=== PATIENT | male | born 1965 | race African-American/Black ===

== ENCOUNTER → 2023-01-04 | Outpatient (CLI) | payer OTHER ==
--- NOTE | 2023-01-04 14:27 | MR ---
EXAMINATION TYPE: MR cervical spine wo con DATE OF EXAM: 01/04/2023 12:58 PM COMPARISON: NONE HISTORY: Headaches, pain and weakness into rt arm Multiplanar MultiSpin echo imaging of the cervical spine was performed. Comparison: none C2-C3: No evidence for degenerative disc disease. No disc bulge/herniation or protrusion. No Canal stenosis. Foramina are patent bilaterally. C3-C4: Mild Disc desiccation. Mild posterior disc bulge with mild effacement ventral thecal sac. AP s maryjo canal diameter appears to be a diminutive on a congenital basis. No central stenosis seen. Mild left foraminal encroachment. C4-C5: Moderate disc desiccation left paracentral disc herniation and partial encapsulating spur. The re is mass effect upon the cervical spinal cord on the left and moderate central stenosis. There is l eft greater than right neural foraminal encroachment. Ventral spondylosis seen. C5-C6: Moderate disc desiccation with broad-based posterior disc bulge and effacement of the ventral thecal sac. Partially encapsulating spur noted. Mild central stenosis seen. Moderate bilateral forami nal encroachment. C6-C7: Moderate disc desiccation with broad-based posterior disc bulge and effacement of the ventral thecal sac. Partially encapsulating spur noted. Borderline to Mild central stenosis seen. Mild bilate ral foraminal encroachment. C7-T1: No evidence for degenerative disc disease. No disc bulge/herniation or protrusion. No Canal stenosis. Foramina are patent bilaterally. Cervical segments are intact. There is normal alignment. Cervical spinal cord is of normal signal. Craniovertebral junction relationships are within normal limits. Scattered ventral spondylosis. IMPRESSION: 1. Multilevel degenerative disc disease. 2. Multilevel central stenosis and foraminal encroachment as outlined above.
== END | disposition home or self-care (01) ==
LOC: RADMRIMAIN 11:20
PROVIDERS: ATTEND Family Medicine
DX: M99.71 Connective tissue and disc stenosis of intervertebral foramina of cervical region (principal); M48.02 Spinal stenosis, cervical region; M50.320 Other cervical disc degeneration, mid-cervical region, unspecified level; R51.9 Headache, unspecified
CPT/HCPCS: 72141

== ENCOUNTER → 2023-02-14 | Outpatient (CLI) | payer OTHER ==
[2023-02-14 11:05] VITALS: BP 136/93; PULSE 110; RESP 15; TEMP 98.4
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
== END ==
LOC: PNWHC3 09:49
PROVIDERS: ATTEND Specialist
DX: M47.812 Spondylosis without myelopathy or radiculopathy, cervical region (principal); E11.9 Type 2 diabetes mellitus without complications; M50.322 Other cervical disc degeneration at C5-C6 level; M19.90 Unspecified osteoarthritis, unspecified site; I10 Essential (primary) hypertension; E78.5 Hyperlipidemia, unspecified; F17.200 Nicotine dependence, unspecified, uncomplicated; J45.909 Unspecified asthma, uncomplicated; Z79.01 Long term (current) use of anticoagulants; Z79.84 Long term (current) use of oral hypoglycemic drugs
CPT/HCPCS: 99211

== ENCOUNTER → 2023-04-24 | Outpatient (CLI) | payer OTHER ==
[2023-04-24 13:02] VITALS: BP 156/92; PULSE 76; RESP 15; TEMP 98.7
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
== END ==
LOC: PNWHC3 11:52
PROVIDERS: ATTEND Specialist
DX: M51.36 Other intervertebral disc degeneration, lumbar region (principal)
CPT/HCPCS: 99211

== ENCOUNTER 2023-05-09 08:55 | Day surgery (SDC) | payer OTHER ==
[2023-05-02 11:50] VITALS: BMI 44.6
[2023-05-09] MEDS ORDERED: LACTATED RINGERS 1,000 ML IV SCH (09:13)
[2023-05-09 09:20] LABS: Glucose,Whole Blood 171 mg/dL (70-110)
[2023-05-09 09:37] VITALS: TEMP 98.6
[2023-05-09] MEDS ORDERED: IOPAMIDOL M200 10 ML VIAL ONE (09:51)
[2023-05-09] MEDS ORDERED: DEXAMETHASONE SOD PHOSPHATE 10 MG/ML 1 ML VIAL ONE (09:51)
--- NOTE | 2023-05-09 09:58 | P.PCN ---
Date of Procedure: 05/09/23 Procedure(s) Performed: PROCEDURE 1. Cervical epidural steroid injection under fluoroscopic guidance, C6-7 (fluoroscopy images available in the radiology department ) 2. Cervical epidurogram. PREOPERATIVE DIAGNOSIS: 1- Cervical Degenerative Disc Diseases 2- Cervical radiculopathy. POSTOPERATIVE DIAGNOSIS: : 1- Cervical Degenerative Disc Diseases , 2- Cervical radiculopathy. ANESTHESIA: Local anesthesia with lidocaine 1% 3 ml only EBL 0 PROCEDURE INDICATION: The patient with neck pain and radiculitis unresponsive to conservative treatment consents for procedure. PROCEDURE DESCRIPTION / TECHNIQUE: The patient was seen and identified in the preoperative area. Risks, benefits, complications, including but not limited to infections ,bleeding , allergic reactions to the medications ,and not complete pain releife, and alternatives were discussed with the patient, the patient agreed to proceed with the procedure and signed the consent. Patient was taken to the OR and time out was completed. The patient was placed in the prone position on the procedure table. A pillow was placed under the patients chest to increase the cervical interlaminar space. The cervical area was prepped and draped in the usual sterile fashion. Vital signs were closely monitored during the procedure. Using anterior-posterior fluoroscopy, the C6-7 interlaminar space was identified and the skin over this site was marked and then infiltrated with 1% lidocaine subcutaneously. Subsequently, a 20-gauge 3-1/2-inch Tuohy epidural needle was inserted and advanced toward the epidural space by means of the ``hanging-drop technique and guided by AP and lateral fluoroscopy. The correct needle position in the epidural space was verified with the injection of 2 mL of the water soluble contrast dye Isovue-200 and observing an excellent epidurogram with the epidural spread of the dye, after negative aspiration for blood and CSF and in the absence of paresthesias. then, mixture containing 20 mg Dexamethasone and 2 ml of preservative-free normal saline injected and a washout of epidurogram was seen. Needle was withdrawn intact, skin was cleansed, and bandages were applied. Complications= none. Disposition= patient was placed in supine position and transferred to the recovery room area in stable condition and there was no evidence of upper or lower extremity motor or sensory deficit after the procedure patient was discharged from recovery room after discharge criteria met and home discharge instructions was given by the staff and patient will follow with the pain clinic in 2-4 weeks
[2023-05-09 10:09] LABS: Glucose,Whole Blood 161 mg/dL (70-110)
[2023-05-09 10:28] VITALS: RESP 20
[2023-05-09 10:53] VITALS: BP 144/85
[2023-05-09 10:54] VITALS: PULSE 91
--- NOTE | 2023-05-09 11:39 | FL ---
EXAMINATION TYPE: FL guided pain mgmt statistic Intraoperative/procedural fluoroscopic services were provided. Total fluoroscopy time is 3. seconds with a total of 1 submitted images to PACS. Please see the operative/procedural note for further details. DAP: [id number] mGym2
== END 2023-05-09 11:00 | disposition home or self-care (01) ==
LOC: ORPAIN 08:55
PROVIDERS: ATTEND Specialist
DX: M50.123 Cervical disc disorder at C6-C7 level with radiculopathy (principal); E11.9 Type 2 diabetes mellitus without complications; Z88.6 Allergy status to analgesic agent
CPT/HCPCS: 62321; J1100; Q9966

== ENCOUNTER → 2023-05-27 | Outpatient (CLI) | payer OTHER ==
[2023-05-27 13:34] VITALS: BP 134/84; PULSE 96; RESP 15; TEMP 98.4
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
== END ==
LOC: PNWHC3 12:30
PROVIDERS: ATTEND Specialist
DX: M50.322 Other cervical disc degeneration at C5-C6 level (principal); F12.90 Cannabis use, unspecified, uncomplicated
CPT/HCPCS: 99211

== ENCOUNTER → 2023-10-25 | Outpatient (CLI) | payer OTHER ==
[~2023-10-25] MED LIST: REGADENOSON 0.4 MG/5 ML SYRINGE IV ONE
--- NOTE | 2023-10-25 13:34 | NM ---
EXAMINATION TYPE: NM stress lexiscan cardiolite DATE OF EXAM: 10/25/2023 COMPARISON: NONE CLINICAL INDICATION: Male, 58 years old with history of I10 HTN; TECHNIQUE: After the intravenous administration of 10.02 mCi Tc 99m Sestamibi - Cardiolite resting S PECT images acquired 70 minutes post injection. The patient received 0.4mg Lexiscan, 25.8 mCi Tc 99m Sestamibi - Stress images obtained [address] injection FINDINGS: Review of stress and rest SPECT images demonstrates no distinct perfusion abnormality. Gated analysi s shows normal wall motion with an estimated left ventricular ejection fraction of 60 %. TID is calc ulated at 0.75, within normal limits. IMPRESSION: No scintigraphic evidence for reversible ischemia.
--- NOTE | 2023-10-25 15:25 | CA ---
Lexiscan Nuclear Stress Test Report Name: Eleuterio Koch Exam Date: 10/25/2023 09:20 Exam Location: [facility] Ht (in): 67 Wt (lb): 274 BSA: 2.31 Ordering Phys: Rosario Barrera MD Referring Phys: Patric Andino DO Technologist: RICHARD Age: 58 Gender: M : 1965 Procedure CPT: Indications: I10 HTN ICD-10 Codes: Patient History: Hypertension, hyperlipidemia, chest pain and shortness of breath Medications: Meds past 24 hrs: Pretest Chest Pain: STRESS TEST Lexiscan Protocol Exercise Duration (min:sec): 01:[address] Depressions (mm): Angina Score: Cummins Score: Resting HR (bpm): 86 Peak HR (bpm): 126 Resting BP (mmHg): 147 / 86 Peak BP (mmHg): 204 / 113 MPHR: 161 Target HR: 137 % MPHR: 78 METS: 1.0 Total Dose: Peak Dose: Atropine: Double Product: 32611 BP Response: Stress Termination: INFUSION COMPLETE Stress Symptoms: DIFFICULTY IN BREATHING Stress Summary: ECG ANALYSIS Resting ECG: Stress ECG: CONCLUSIONS At baseline EKG showed sinus rhythm, normal axis, T-wave flattening in the inferior and lateral leads. Patient recieved IV infusion of Lexiscan 0.4mg and at peak infusion EKG showed no significant change from baseline. Conclusions: 1. Nonspecific stress EKG portion secondary baseline EKG abnormalities. 2. Nuclear imaging to be reported separately. Dr. Jamie Nails DO (Electronically Signed) Final Date: 25 October 2023 15:25
== END | disposition home or self-care (01) ==
LOC: RADNMMAIN 07:37
PROVIDERS: ATTEND Nuclear Medicine Nuclear Cardiology
DX: Z01.810 Encounter for preprocedural cardiovascular examination (principal); E78.2 Mixed hyperlipidemia; I10 Essential (primary) hypertension; R94.31 Abnormal electrocardiogram [ECG] [EKG]
CPT/HCPCS: 93017; 78452; A9500; J2785

== ENCOUNTER → 2024-02-25 | Outpatient (CLI) | payer OTHER ==
[2024-02-25 18:44] LABS: Basophils # (A) 0.09 X 10*3/uL (0.00-0.10); Basophils % (A) 0.9 %; Eosinophils # (A) 0.14 X 10*3/uL (0.04-0.35); Eosinophils % (A) 1.4 %; HCT 44.2 % (39.6-50.0); HGB 14.3 g/dL (13.0-17.0); Lymphocytes # (A) 3.31 X 10*3/uL (0.90-5.00); Lymphocytes % (A) 32.3 %; MCH 26.6 pg (27.0-32.0); MCHC 32.4 g/dL (32.0-37.0); MCV 82.3 FL (80.0-97.0); Mean Platelet Volume 11.7 FL (9.5-12.2); Monocytes % (A) 10.7 %; NRBC Per 100 WBC 0 X 10*3/uL (0.00-0.01); Neutrophils # (A) 5.57 X 10*3/uL (1.80-7.70); Neutrophils % (A) 54.4 %; Platelet Count 229 X 10*3/uL (140-440); RBC 5.37 X 10*6/uL (4.40-5.60); RDW 14.5 % (11.5-14.5); WBC 10.24 X 10*3/uL (4.50-10.00)
[2024-02-25 19:06] LABS: Immunoglobulin E 48.2 IU/mL (0.00-114.00)
[2024-02-26 13:25] LABS: Alt. alternata IgE Class CLASS 0; Alternaria alternata IgE <0.10 kU/L (<0.10); Asperg. fumagatus IgE <0.10 kU/L (<0.10); Asperg. fumagatus IgE Class CLASS 0; Bermuda Grass IgE <0.10 kU/L (<0.10); Birch(Com.Silvr) IgE <0.10 kU/L (<0.10); Birch(Com.Silvr) IgE Class CLASS 0; Cat Epith & Dander IgE <0.10 kU/L (<0.10); Cat Epith & Dander IgE Class CLASS 0; Clad herbarum IgE <0.10 kU/L (<0.10); Clad herbarum IgE Class CLASS 0; Cockroach IgE <0.10 kU/L (<0.10); Cottonwood IgE <0.10 kU/L (<0.10); Dermato. Pteronyssinus Class CLASS 0; Dermato. Pteronyssinus IgE <0.10 kU/L (<0.10); Dermato. farinae IgE <0.10 kU/L (<0.10); Dermato. farinae IgE Class CLASS 0; Dog Dander IgE <0.10 kU/L (<0.10); Elm IgE <0.10 kU/L (<0.10); IgE (Allergen) 40.8 IU/mL (<114.0); Maple (Box Elder) IgE <0.10 kU/L (<0.10); Maple (Box Elder) IgE Class CLASS 0; Mountain Cedar IgE <0.10 kU/L (<0.10); Mountain Cedar IgE Class CLASS 0; Mouse Urine IgE Class CLASS 0; Mouse Urine Proteins,IgE <0.10 kU/L (0.10); Nettle IgE <0.10 kU/L (<0.10); Nettle IgE Class CLASS 0; Oak IgE <0.10 kU/L (<0.10); Penicillium chrysogenum IgE <0.10 kU/L (<0.10); Penicillium chrysogenum IgE Cl CLASS 0; Rough Marshelder IgE <0.10 kU/L (<0.10); Rough Marshelder IgE Class CLASS 0; Timothy Grass IgE <0.10 kU/L (<0.10); Timothy Grass IgE Class CLASS 0; White Ash IgE Class CLASS 0
[2024-02-27 12:05] LABS: Alpha 1 Anti-Trypsin 136 mg/dL (90 - 200)
== END | disposition home or self-care (01) ==
LOC: LABWHC1 13:19
PROVIDERS: ATTEND Internal Medicine Pulmonary Disease
DX: R06.02 Shortness of breath (principal); R53.83 Other fatigue; J45.50 Severe persistent asthma, uncomplicated; R05.9 Cough, unspecified
CPT/HCPCS: 36415; 82103; 82104; 82785; 85025; 86001; 86003; 86606; 86609

== ENCOUNTER 2024-06-19 12:23 | Inpatient (IN) | payer OTHER ==
[2024-06-19 13:09] LABS: Glucose,Whole Blood 219 mg/dL (70-110)
[2024-06-19] MEDS: IV FLUID CONTINUATION 800 ML IV ONE (13:40)
[2024-06-19] MEDS: MIDAZOLAM 2 MG/2 ML VIAL IVP ONE (13:45)
[2024-06-19] MEDS: fentaNYL (PF) 50 MCG/ML 2 ML AMP IVP ONE (13:46)
[2024-06-19] MEDS: HEPARIN SODIUM 1,000 UN/ML (10ML VL) IVP ONE (13:51)
[2024-06-19] MEDS: PRASUGREL 10 MG TAB PO ONE (14:00)
[2024-06-19] MEDS: HEPARIN SODIUM,PORCINE 10,000 UNIT in SODIUM CHLORIDE 0.9% 1,000 ML IRRIGATION ONE (14:08)
[2024-06-19] MEDS: HEPARIN SODIUM,PORCINE (1 ML) 2,500 UNIT in SODIUM CHLORIDE 0.9% 250 ML IRRIGATION ONE (14:08)
[2024-06-19] MEDS: IOPAMIDOL-370 100ML BTL INJ ONE (14:18)
[2024-06-19] MEDS ORDERED: ATROPINE SULFATE 0.1 MG/ML 10ML SYRINGE IV PRN (14:22)
[2024-06-19] MEDS ORDERED: RX INFO: IV CONTRAST WAS GIVEN 1 EACH MISC MISCELLANE PRN (14:22)
[2024-06-19] MEDS ORDERED: MAG HYDROX/AL HYDROX/SIMETH 30 ML CUP PO PRN (14:22)
--- NOTE | 2024-06-19 14:33 | P.PCN ---
Date of Procedure: 06/19/24 Operative Findings: PERCUTANEOUS CORONARY INTERVENTION Performing physician Rishi Reaves M.D. Procedure Performed: 1. Successful stenting of the mid LAD using 4.0 x 33 Xience drug-eluting stent with an excellent angiographic results. 2. Adjunctive use of IVUS and IFR Indication: This is a 59-year-old -[place] gentleman who was admitted to the hospital with chest discomfort and underwent myocardial perfusion imaging stress that showed an anterior ischemia with he underwent a heart catheterization and that revealed intermediate to severe disease involving the first OM as well as LAD. He was brought today to undergo an IFR of the OM and LAD Approach: Right common femoral artery Complications: None Level of Sedation: Moderate with a sedation length of 35 minutes Procedure Discussion: After obtaining informed consent the patient was brought to the cardiac Supervisor [employer]. The right common femoral sheath was exchanged over a 035 wire into a new 6 Prydeinig 11 cm sheath. After that I did 0 the Dobler wire and equalized between the Dobler wire and guiding catheter which was JL 4 guiding catheter. Anticoagulation was initiated using heparin. Subsequently the left main was engaged and the Dobler wire was advanced initially to the first obtuse marginal branch of the left circumflex with IFR was performed came in to be normal at 0.91. Subsequently the wire was directed toward the LAD was IFR was performed and came to be abnormal at 0.87. Subsequently I decided to intervene on the LAD. I did IVUS which showed a diameter between 3.5 to 4 mm. Predilatation was performed using 3 mm balloon before I deployed 4.0 x 33 mm stent which was positioned under fluoroscopy guidance and deployed under fluoroscopy guidance and postdilated using 4 mm noncompliant balloon was final angiogram and IVUS showed good angiographic results and the procedure was completed with no complication Postprocedure Management: 1. Dual antiplatelet therapy using aspirin and Effient for at least 6-month 2. Aggressive cholesterol control 3. Risk factors modification
[2024-06-19 14:41] LABS: Glucose,Whole Blood 196 mg/dL (70-110)
[2024-06-19] MEDS: NITROGLYCERIN SL TABS 0.4 MG TAB SUBLINGUAL PRN (15:16)
[2024-06-19] MEDS: SODIUM CHLORIDE 0.9% 1,000 ML in EMPTY BAG 1 BAG IV SCH (15:17)
[2024-06-19] MEDS: ACETAMINOPHEN TAB 500 MG TAB PO PRN (15:26)
[2024-06-19] MEDS ORDERED: hydrALAZINE HCL 20 MG/ML 1 ML VIAL IVP PRN (15:48)
[2024-06-19 17:03] LABS: Glucose,Whole Blood 278 mg/dL (70-110)
[2024-06-19] MEDS ORDERED: DEXTROSE 50% SYRINGE 50 ML IVP PRN ×2 (17:03)
[2024-06-19] MEDS: IPRATROPIUM-ALBUTEROL 3 ML NEB INHALATION PRN (17:11)
[2024-06-19] MEDS: INSULIN LISPRO (HumaLOG) 100 UNIT/ML 10 mL VL SQ SCH (17:14)
[2024-06-19 20:09] LABS: Glucose,Whole Blood 195 mg/dL (70-110)
[2024-06-19] MEDS: FLUTICASONE 110 MCG INHALER INHALATION SCH (20:28)
[2024-06-19] MEDS: INSULIN GLARGINE (LANTUS) 100 UNIT/ML SYR SQ SCH (21:18)
[2024-06-20 06:24] LABS: Glucose,Whole Blood 219 mg/dL (70-110)
[2024-06-20 07:40] LABS: African American GFR (CKD) >90 (>60 ml/min/1.73 sqM); Non-African American GFR(CKD) >90 (>60 ml/min/1.73 sqM)
[2024-06-20] MEDS: ASPIRIN 81 MG PO SCH (09:05)
[2024-06-20] MEDS: MONTELUKAST 10 MG TAB PO SCH (09:05)
[2024-06-20] MEDS: CHOLECALCIFEROL 25 MCG (1000 IU) TABLET PO SCH (09:05)
[2024-06-20] MEDS: PRASUGREL 10 MG TAB PO SCH (09:05)
[2024-06-20 11:27] LABS: Glucose,Whole Blood 338 mg/dL (70-110)
[2024-06-20] MEDS: METOPROLOL SUCCINATE (ER) 25 MG TAB.ER.24H PO SCH (12:09)
[2024-06-20] MEDS: DAPAGLIFLOZIN PROPANEDIOL 10 MG TABLET PO SCH (12:09)
[2024-06-20] MEDS: amLODIPine 2.5 MG TAB PO SCH (12:09)
[2024-06-20 12:54] LABS: NT-Pro-B-Type Natriuretic Pept <20 pg/mL
[2024-06-20] MEDS ORDERED: NON FORMULARY DRUG (Albuterol Inhaler 90 MCG Puff) INHALATION PRN (14:37)
[2024-06-20 14:51] VITALS: BMI 40.4
[2024-06-20] MEDS: INSULIN GLARGINE (LANTUS) 100 UNIT/ML SYR SQ SCH (15:43)
[2024-06-20 16:54] LABS: Glucose,Whole Blood 129 mg/dL (70-110)
[2024-06-20] MEDS: glipiZIDE 5 MG TAB PO SCH (17:03)
[2024-06-20] MEDS: ATORVASTATIN 40 MG TAB PO SCH (20:35)
[2024-06-20 20:53] LABS: Glucose,Whole Blood 155 mg/dL (70-110)
[2024-06-20] MEDS: ZOLPIDEM 5 MG TAB PO PRN (21:12)
--- NOTE | 2024-06-21 01:53 | HP ---
HISTORY AND PHYSICAL CHIEF COMPLAINT: Chest pain. HISTORY OF PRESENT ILLNESS: This 59-year-old gentleman with past medical history of multiple medical problems, admitted with chest pain. The patient had abnormal stress test. Anterior wall ischemia is suspected. Dr. eRaves performed cardiac catheterization and successful stenting of the mid LAD with drug-eluting stent. There is no history of fever, rigors, or chills at this time. Blood sugars are elevated. PAST MEDICAL HISTORY: Reviewed include COPD, diabetes, hypertension, hyperlipidemia. Rest of the chart is also reviewed. HOME MEDICATIONS: Reviewed include Zestril. ALLERGIES: None. FAMILY HISTORY: History of cancer in the family. SOCIAL HISTORY: THC smoking. REVIEW OF SYSTEMS: Fourteen-point review is negative except as mentioned earlier. PHYSICAL EXAMINATION: VITAL SIGNS: Pulse 84, blood pressure 131/69, respirations 20. HEENT: Conjunctivae normal. NECK: No JVD. CARDIOVASCULAR: S1, S2. RESPIRATIONS: Breath sounds diminished at the bases. Scattered rhonchi. ABDOMEN: Soft. NERVOUS SYSTEM: Nonfocal. LABORATORY DATA: Reviewed. Glucose 338. ASSESSMENT: 1. Coronary artery disease, status post cardiac catheterization and stenting of the mid LAD. 2. Diabetes mellitus, type 2. 3. Chronic obstructive pulmonary disease. 4. Hypertension. 5. Hyperlipidemia. RECOMMENDATIONS AND DISCUSSION: I recommend to continue current management and treatment. Recommend resume the home medications. Monitor blood sugars closely. Closely follow with Cardiology. Dual antiplatelet treatment. Bronchodilators. Guarded prognosis. Further recommendations to follow. See orders for details. MMODL / IJN: [id number] /
[2024-06-21 05:51] LABS: Glucose,Whole Blood 148 mg/dL (70-110)
[2024-06-21 08:25] LABS: Basophils # (A) 0.1 k/uL (0-0.2); Basophils % (A) 1 %; Eosinophils # (A) 0.2 k/uL (0-0.7); Eosinophils % (A) 2 %; HCT 48.2 % (39.0-53.0); HGB 15.1 gm/dL (13.0-17.5); Lymphocytes # (A) 2.5 k/uL (1.0-4.8); Lymphocytes % (A) 25 %; MCH 26.8 pg (25.0-35.0); MCHC 31.2 g/dL (31.0-37.0); MCV 85.9 fL (80.0-100.0); Monocytes # (A) 0.8 k/uL (0-1.0); Monocytes % (A) 8 %; Neutrophils # (A) 6.3 k/uL (1.3-7.7); Neutrophils % (A) 62 %; Platelet Count 210 k/uL (150-450); RBC 5.61 m/uL (4.30-5.90); RDW 13.2 % (11.5-15.5); WBC 10.1 k/uL (3.8-10.6)
[2024-06-21 08:56] LABS: ALT 41 U/L (4-49); AST 40 U/L (17-59); African American GFR (CKD) >90 (>60 ml/min/1.73 sqM); Albumin 4.3 g/dL (3.5-5.0); Alkaline Phosphatase 76 U/L (38-126); Anion Gap 11 mmol/L; Blood Urea Nitrogen 11 mg/dL (9-20); Calcium 9.2 mg/dL (8.4-10.2); Carbon Dioxide 27 mmol/L (22-30); Chloride 100 mmol/L (98-107); Glucose 163 mg/dL (74-99); Non-African American GFR(CKD) >90 (>60 ml/min/1.73 sqM); Potassium 4.2 mmol/L (3.5-5.1); Sodium 138 mmol/L (137-145); Total Bilirubin 0.9 mg/dL (0.2-1.3); Total Protein 7.8 g/dL (6.3-8.2)
[2024-06-21 11:35] LABS: Chol/HDL Ratio 5.56 Ratio
[2024-06-21 11:39] LABS: Glucose,Whole Blood 147 mg/dL (70-110)
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
[2024-06-21] MEDS: BUDESONIDE 1 MG/2 ML NEBU INHALATION SCH (15:20)
[2024-06-21] MEDS: IPRATROPIUM-ALBUTEROL 3 ML NEB INHALATION SCH (15:22)
[2024-06-21 16:36] LABS: Influenza A Not Detected (Not Detectd); Influenza B Not Detected (Not Detectd); RSV Not Detected (Not Detectd)
[2024-06-21 16:40] LABS: Glucose,Whole Blood 236 mg/dL (70-110)
[2024-06-21 20:07] LABS: Glucose,Whole Blood 242 mg/dL (70-110)
--- NOTE | 2024-06-21 20:26 | P.CRDCN ---
History of Present Illness Consult date: 06/20/24 History of present illness: HISTORY OF PRESENTING ILLNESS: Patient is a 59-year-old -[place] male who was transferred from [facility] because of a abnormal myocardial perfusion imaging stress test showing anterior wall ischemia. He had a heart catheterization which showed severe disease involving first OM and LAD. For this he was transferred to [facility]. He underwent PCI to mid LAD because of abnormal IFR. OM assessment of IFR was negative therefore was no intervention was done in OM. Postoperatively he has been doing well. He denies any shortness of breath palpitation lightheadedness or dizziness. This morning he was complaining of some nonspecific chest pressure-like symptoms for this I started him on amlodipine for antianginal control. REVIEW OF SYSTEMS: 14 point review of system is negative except what is mentioned above in HPI. PHYSICAL EXAMINATION: Neck: Brisk carotid upstroke, no jugular venous distention. Lungs: Clear to auscultation. Heart: Regular rate and rhythm, S1-S2, , no murmur or rub. Abdomen: Soft nontender, positive bowel sounds. Extremities: No edema, intact distal pulses. Neuro: Alert, oritented, no focal deficits. Detailed neuro exam was not performed. ASSESSMENT: # CAD status post PCI to LAD # Moderate nonobstructive disease in OM # Type 2 diabetes # Dyslipidemia PLAN: Continue aspirin, prasugrel 10 mg daily, Lipitor 40 mg daily, amlodipine 2.5 mg daily, lisinopril 2.5 mg daily Monitor blood pressure and heart rate. If patient does not have any chest pain symptoms, consider discharging patient. Darrius Delgado MD, FACC, RPVI Thank you for allowing [facility] to participate in this patient's care. Feel free to reach out in case of any followup questions. Past Medical History Past Medical History: COPD, Diabetes Mellitus, Hyperlipidemia, Hypertension Additional Past Medical History / Comment(s): gout History of Any Multi-Drug Resistant Organisms: None Reported Past Surgical History: Orthopedic Surgery Additional Past Surgical History / Comment(s): ORIF LT ANKLE. KNEE CAP REPLACED BILAT. BILAT EYES COSMETIC SX Past Anesthesia/Blood Transfusion Reactions: No Reported Reaction Past Psychological History: No Psychological Hx Reported Smoking Status: Current every day smoker Past Alcohol Use History: Occasional Additional Past Alcohol Use History / Comment(s): SMOKING 1/2 PPD SINCE AGE 9 Past Drug Use History: Marijuana Additional Drug Use History / Comment(s): USES MARIJUANA DAILY - Past Family History Mother Family Medical History: Cancer Medications and Allergies Home Medications Medication Instructions Recorded Confirmed Type Albuterol Inhaler [Ventolin Hfa 2 puff INHALATION RT-Q6H PRN 05/02/23 06/19/24 History Inhaler] Atorvastatin [Lipitor] 20 mg PO DAILY 05/02/23 06/19/24 History Cholecalciferol (Vitamin D3) 50 mcg PO DAILY 06/19/24 06/19/24 History [Vitamin D3 (50 Mcg = 2000 Iu)] Dulaglutide [Trulicity] 1.5 mg SQ FR 06/19/24 06/19/24 History Fluticasone Propionate 110 Mcg 2 puff INHALATION RT-BID 06/19/24 06/19/24 History [Flovent 110 Mcg Inhaler] Insulin Glargine,Hum.rec.anlog 20 units SQ HS 06/19/24 06/19/24 History [Lantus Solostar Pen] Montelukast [Singulair] 10 mg PO DAILY 06/19/24 06/19/24 History glipiZIDE [Glucotrol] 10 mg PO AC-BRKFST 06/19/24 06/19/24 History lisinopriL [Zestril] 10 mg PO DAILY 06/19/24 06/19/24 History metFORMIN HCL ER [Glucophage XR] 1,000 mg PO BID-W/MEALS 06/19/24 06/19/24 History Allergies Allergy/AdvReac Type Severity Reaction Status Date / Time No Known Allergies Allergy Verified 06/19/24 16:18 Physical Exam Vitals: Vital Signs Temp Pulse Pulse Resp BP BP Pulse Ox 06/21/24 16:13 98.7 F 82 20 105/69 99 06/21/24 16:03 85 06/21/24 15:54 88 06/21/24 12:16 91 20 106/73 06/21/24 11:32 95 87/51 76/49 06/21/24 11:26 130/81 06/21/24 11:20 98.2 F 82 20 106/73 99 06/21/24 09:04 72 06/21/24 08:53 68 98 06/21/24 08:00 98.3 F 76 20 116/70 99 06/21/24 04:21 98.1 F 83 20 150/77 99 06/20/24 23:24 98.8 F 90 20 140/88 98 06/20/24 20:25 99.2 F 84 20 116/68 95 Intake and Output 06/21/24 06/21/24 06/21/24 06:59 14:59 22:59 Intake Total 960 480 Balance 960 480 Intake: Oral 960 480 Other: Voiding Method # Voids 3 Weight Results 06/21/24 07:30 06/21/24 07:30 Cardiac Enzymes 06/21/24 Range/Units 07:30 AST 40 (17-59) U/L Lipids 06/20/24 Range/Units 06:39 Triglycerides 234.00 H (0.00-149.00) mg/dL Cholesterol 168.00 (0.00-200.00) mg/dL HDL Cholesterol 30.20 L (40.00-60.00) mg/dL Cholesterol/HDL Ratio 5.56 Ratio CBC 06/21/24 Range/Units 07:30 WBC 10.1 (3.8-10.6) k/uL RBC 5.61 (4.30-5.90) m/uL Hgb 15.1 (13.0-17.5) gm/dL Hct 48.2 (39.0-53.0) % Plt Count 210 (150-450) k/uL Comprehensive Metabolic Panel 06/21/24 Range/Units 07:30 Sodium 138 (137-145) mmol/L Potassium 4.2 (3.5-5.1) mmol/L Chloride 100 (98-107) mmol/L Carbon Dioxide 27 (22-30) mmol/L BUN 11 (9-20) mg/dL Creatinine 0.73 (0.66-1.25) mg/dL Glucose 163 H (74-99) mg/dL Calcium 9.2 (8.4-10.2) mg/dL AST 40 (17-59) U/L ALT 41 (4-49) U/L Alkaline Phosphatase 76 (38-126) U/L Total Protein 7.8 (6.3-8.2) g/dL Albumin 4.3 (3.5-5.0) g/dL Current Medications Generic Name Dose Route Start Last Admin Trade Name Freq PRN Reason Stop Dose Admin Acetaminophen 1,000 mg 06/19/24 15:26 06/19/24 15:26 Acetaminophen Tab 500 Mg Tab PO 1,000 mg ONCE PRN Administration Fever and/ or Pain Al Hydroxide/Mg Hydroxide 30 ml 06/19/24 14:22 Mag Hydrox/Al Hydrox/Simeth 30 Ml Cup PO Q4HR PRN Heartburn Albuterol/Ipratropium 3 ml 06/19/24 16:47 06/21/24 15:54 Ipratropium-Albuterol 3 Ml Neb INHALATION 3 ml RT-Q4H PRN Administration Shortness Of Breath Albuterol/Ipratropium 3 ml 06/21/24 14:49 06/21/24 15:22 Ipratropium-Albuterol 3 Ml Neb INHALATION Not Given RT-TID MARTA Amlodipine Besylate 2.5 mg 06/20/24 11:45 06/21/24 08:15 Amlodipine 2.5 Mg Tab PO 2.5 mg DAILY MARTA Administration Aspirin 81 mg 06/20/24 09:00 06/21/24 08:15 Aspirin 81 Mg PO 81 mg DAILY MARTA Administration Atorvastatin Calcium 40 mg 06/20/24 21:00 06/20/24 20:35 Atorvastatin 40 Mg Tab PO 40 mg HS MARTA Administration Atropine Sulfate 0.5 mg 06/19/24 14:22 Atropine Sulfate 0.1 Mg/Ml 10ml Syringe IV ONCE PRN Symptomatic Bradycardia Budesonide 1 mg 06/21/24 14:55 06/21/24 15:20 Budesonide 1 Mg/2 Ml Nebu INHALATION Not Given RT-BID MARTA Cholecalciferol 50 mcg 06/20/24 09:00 06/21/24 08:15 Cholecalciferol 25 Mcg (1000 Iu) Tablet PO 50 mcg DAILY MARTA Administration Dapagliflozin 10 mg 06/20/24 11:45 06/21/24 08:15 Dapagliflozin Propanediol 10 Mg Tablet PO 10 mg DAILY MARTA Administration Dextrose/Water 25 ml 06/19/24 17:03 Dextrose 50% Syringe 50 Ml IVP PER PROTOCOL PRN Hypoglycemia Protocol Dextrose/Water 50 ml 06/19/24 17:03 Dextrose 50% Syringe 50 Ml IVP PER PROTOCOL PRN Hypoglycemia Protocol Glipizide 10 mg 06/20/24 14:45 06/21/24 07:03 Glipizide 5 Mg Tab PO 10 mg AC-BRKFST MARTA Administration Insulin Glargine 20 unit 06/20/24 15:00 06/21/24 07:03 Insulin Glargine (Lantus) 100 Unit/Ml Syr SQ 20 unit BID@0700,2100 MARTA Administration Insulin Human Lispro 0 unit 06/19/24 17:30 06/21/24 17:16 Insulin Lispro (Humalog) 100 Unit/Ml 10 Ml Vl SQ 4 unit ACHS MARTA Administration Protocol Lisinopril 2.5 mg 06/20/24 09:00 06/21/24 08:15 Lisinopril 2.5 Mg Tab PO 2.5 mg DAILY MARTA Administration Metoprolol Succinate 25 mg 06/20/24 11:45 06/21/24 08:15 Metoprolol Succinate (Er) 25 Mg Tab.Er.24h PO 25 mg DAILY MARTA Administration Montelukast Sodium 10 mg 06/20/24 09:00 06/21/24 08:15 Montelukast 10 Mg Tab PO 10 mg DAILY MARTA Administration Nitroglycerin 0.4 mg 06/19/24 14:22 06/21/24 11:27 Nitroglycerin Sl Tabs 0.4 Mg Tab SUBLINGUAL 0.4 mg Q5M PRN Administration Chest Pain Non-Formulary Medication 1.5 mg 06/26/24 09:00 Dulaglutide [Trulicity] SQ FR MARTA Prasugrel 10 mg 06/20/24 09:00 06/21/24 08:15 Prasugrel 10 Mg Tab PO 10 mg DAILY MARTA Administration Protocol Zolpidem Tartrate 5 mg 06/19/24 14:22 06/20/24 21:12 Zolpidem 5 Mg Tab PO 5 mg HS PRN Administration Insomnia Intake and Output 06/21/24 06/21/24 06/21/24 06:59 14:59 22:59 Intake Total 960 480 Balance 960 480 Intake: Oral 960 480 Other: Voiding Method # Voids 3 Weight 06/21/24 07:30 06/21/24 07:30
--- NOTE | 2024-06-21 20:28 | P.PN ---
Subjective Progress Note Date: 06/21/24 HISTORY OF PRESENTING ILLNESS: Patient is a 59-year-old -Cyp[place] male who was transferred from [facility] because of a abnormal myocardial perfusion imaging stress test showing anterior wall ischemia. He had a heart catheterization which showed severe disease involving first OM and LAD. For this he was transferred to [facility]. He underwent PCI to mid LAD because of abnormal IFR. OM assessment of IFR was negative therefore was no intervention was done in OM. Postoperatively he has been doing well. He denies any shortness of breath palpitation lightheadedness or dizziness. This morning he was complaining of some nonspecific chest pressure-like symptoms for this I started him on amlodipine for antianginal control. Progress note 06/21/2024 Patient is still complaining of substernal chest pressure-like symptoms however his symptom description is very atypical. I will monitoring for next 24 hours and if patient is hemodynamically stable and does not have any chest pain, consider discharging him tomorrow. PHYSICAL EXAMINATION: Neck: Brisk carotid upstroke, no jugular venous distention. Lungs: Clear to auscultation. Heart: Regular rate and rhythm, S1-S2, , no murmur or rub. Abdomen: Soft nontender, positive bowel sounds. Extremities: No edema, intact distal pulses. Neuro: Alert, oritented, no focal deficits. Detailed neuro exam was not performed. ASSESSMENT: # CAD status post PCI to LAD # Moderate nonobstructive disease in OM # Type 2 diabetes # Dyslipidemia PLAN: Continue aspirin, prasugrel 10 mg daily, Lipitor 40 mg daily, amlodipine 2.5 mg daily, lisinopril 2.5 mg daily. Continue metoprolol 25 mg daily Monitor blood pressure and heart rate. His blood pressure is low normal however he has not felt any lightheadedness or dizziness. There is no further room of adding further antianginal therapy with current blood pressure I will monitoring for next 24 hours and if patient is hemodynamically stable and does not have any chest pain, consider discharging him tomorrow. His OM1 disease appears to be moderate and does not appears to be hemod ynamically significant by IFR assessment. Less likely the reason for his chest pain. Objective - Vital Signs Vital signs: Vital Signs Temp 98.7 F 06/21/24 16:13 Pulse 82 06/21/24 16:13 Resp 20 06/21/24 16:13 BP 105/69 06/21/24 16:13 Pulse Ox 99 06/21/24 16:13 FiO2 Intake & Output 06/21/24 06/21/24 06/22/24 06:59 18:59 06:59 Intake Total 1440 Balance 1440 Weight Intake: Oral 1440 Other: Voiding Method # Voids 3 - Labs CBC & Chem 7: 06/21/24 07:30 06/21/24 07:30 Labs: Abnormal Lab Results - Last 24 Hours (Table) 06/20/24 06/20/24 06/21/24 Range/Units 06:39 20:46 05:49 Glucose (74-99) mg/dL POC Glucose (mg/dL) 155 H 148 H (70-110) mg/dL Triglycerides 234.00 H (0.00-149.00) mg/dL VLDL Cholesterol, Calc 46.80 H (5.00-40.00) mg/dL HDL Cholesterol 30.20 L (40.00-60.00) mg/dL 06/21/24 06/21/24 06/21/24 Range/Units 07:30 11:37 16:38 Glucose 163 H (74-99) mg/dL POC Glucose (mg/dL) 147 H 236 H (70-110) mg/dL Triglycerides (0.00-149.00) mg/dL VLDL Cholesterol, Calc (5.00-40.00) mg/dL HDL Cholesterol (40.00-60.00) mg/dL 06/21/24 Range/Units 20:06 Glucose (74-99) mg/dL POC Glucose (mg/dL) 242 H (70-110) mg/dL Triglycerides (0.00-149.00) mg/dL VLDL Cholesterol, Calc (5.00-40.00) mg/dL HDL Cholesterol (40.00-60.00) mg/dL
--- NOTE | 2024-06-22 01:20 | PN ---
PROGRESS NOTE DATE OF SERVICE: 06/21/2024 SUBJECTIVE: This is a 59-year-old gentleman, who was admitted after CAD stenting, also had history of COPD. The patient is complaining of incessant cough. At this time, there is no history of any fever, rigors, chills. PAST MEDICAL HISTORY: Reviewed. REVIEW OF SYSTEMS: A 14-point review of systems is negative except as mentioned earlier. CURRENT MEDICATIONS: Reviewed. PHYSICAL EXAMINATION: VITAL SIGNS: Pulse is 95, blood pressure 87/51, respirations 18. HEENT: Conjunctivae normal. NECK: No JVD. CARDIOVASCULAR: S1, S2. RESPIRATIONS: Breath sounds diminished at the bases. Scattered rhonchi. ABDOMEN: Soft. NERVOUS SYSTEM: Nonfocal. LABORATORY DATA: Reviewed. ASSESSMENT: 1. Coronary artery disease, status post cardiac catheterization and stenting of the mid LAD. 2. Cough and relative hypotension. 3. Diabetes mellitus, type 2. 4. Chronic obstructive pulmonary disease. 5. Hypertension. 6. Hyperlipidemia. RECOMMENDATIONS AND DISCUSSION: Recommended to continue current management and continue symptomatic treatment. Otherwise, I would recommend monitoring blood sugars closely. Continue with bronchodilators. testing, BNP, 2D echo with Doppler. Closely follow with Cardiology. Prognosis is guarded because of multiple complex medical issues. Hold the blood pressure medications for systolic less than 100 mmHg. Further recommendations to follow. MMODL / IJN: [id number] /
[2024-06-22 06:09] LABS: Glucose,Whole Blood 168 mg/dL (70-110)
[2024-06-22 08:17] LABS: ALT 38 U/L (4-49); AST 37 U/L (17-59); African American GFR (CKD) >90 (>60 ml/min/1.73 sqM); Albumin 4.2 g/dL (3.5-5.0); Alkaline Phosphatase 87 U/L (38-126); Anion Gap 12 mmol/L; Blood Urea Nitrogen 13 mg/dL (9-20); Calcium 9.4 mg/dL (8.4-10.2); Carbon Dioxide 27 mmol/L (22-30); Chloride 99 mmol/L (98-107); Glucose 162 mg/dL (74-99); Non-African American GFR(CKD) >90 (>60 ml/min/1.73 sqM); Potassium 4.2 mmol/L (3.5-5.1); Sodium 138 mmol/L (137-145); Total Bilirubin 0.8 mg/dL (0.2-1.3); Total Protein 7.7 g/dL (6.3-8.2)
[2024-06-22 08:26] LABS: Basophils # (A) 0.1 k/uL (0-0.2); Basophils % (A) 1 %; Eosinophils # (A) 0.2 k/uL (0-0.7); Eosinophils % (A) 2 %; HCT 47.1 % (39.0-53.0); Lymphocytes # (A) 2.5 k/uL (1.0-4.8); Lymphocytes % (A) 26 %; MCH 27.4 pg (25.0-35.0); MCHC 31.9 g/dL (31.0-37.0); MCV 85.8 fL (80.0-100.0); Mean Platelet Volume 9.3; Monocytes # (A) 0.8 k/uL (0-1.0); Monocytes % (A) 8 %; Neutrophils % (A) 61 %; Platelet Count 191 k/uL (150-450); RBC 5.49 m/uL (4.30-5.90); RDW 13.2 % (11.5-15.5); WBC 9.8 k/uL (3.8-10.6)
[2024-06-22 09:37] VITALS: RESP 17; TEMP 99.1
[2024-06-22] MEDS: METOPROLOL SUCCINATE (ER) 25 MG TAB.ER.24H PO STA (09:58)
[2024-06-22] MEDS: amLODIPine 2.5 MG TAB PO STA (09:58)
[2024-06-22 11:19] LABS: Glucose,Whole Blood 140 mg/dL (70-110)
[2024-06-22 12:31] VITALS: BP 121/78; PULSE 87
--- NOTE | 2024-06-22 14:42 | P.PN ---
Subjective Progress Note Date: 06/22/24 HISTORY OF PRESENTING ILLNESS: Patient is a 59-year-old -[place] male who was transferred from [facility] because of a abnormal myocardial perfusion imaging stress test showing anterior wall ischemia. He had a heart catheterization which showed severe disease involving first OM and LAD. For this he was transferred to [facility]. He underwent PCI to mid LAD because of abnormal IFR. OM assessment of IFR was negative therefore was no intervention was done in OM. Postoperatively he has been doing well. He denies any shortness of breath palpitation lightheadedness or dizziness. This morning he was complaining of some nonspecific chest pressure-like symptoms for this I started him on amlodipine for antianginal control. Progress note 06/21/2024 Patient is still complaining of substernal chest pressure-like symptoms however his symptom description is very atypical. I will monitoring for next 24 hours and if patient is hemodynamically stable and does not have any chest pain, consider discharging him tomorrow. 06/22 Patient seen and examined. Heart rate and blood pressure remain elevated. Blood pressure 145/96, heart rate 120, pulse ox 91% on room air. CBC and CMP unremarkable. PHYSICAL EXAMINATION: Neck: Brisk carotid upstroke, no jugular venous distention. Lungs: Clear to auscultation. Heart: Regular rate and rhythm, S1-S2, , no murmur or rub. Abdomen: Soft nontender, positive bowel sounds. Extremities: No edema, intact distal pulses. Neuro: Alert, oritented, no focal deficits. Detailed neuro exam was not performed. ASSESSMENT: # CAD status post PCI to LAD # Moderate nonobstructive disease in OM # Type 2 diabetes # Dyslipidemia PLAN: Continue current cardiac medications Patient is cleared for discharge from cardiology May follow-up in the office in 1 to 2 weeks. Nurse practitioner note has been reviewed, I agree with documented findings and plan of care. Patient was seen and examined. Objective - Vital Signs Vital signs: Vital Signs Temp 99.1 F 06/22/24 09:10 Pulse 122 H 06/22/24 09:10 Resp 17 06/22/24 09:10 BP 145/96 06/22/24 09:10 Pulse Ox 91 L 06/22/24 09:10 FiO2 Intake & Output 06/21/24 06/22/24 06/22/24 18:59 06:59 18:59 Intake Total 1440 720 240 Balance 1440 720 240 Weight 115 kg Intake: Oral 1440 240 Blood Product 720 Other: Voiding Method Toilet Toilet # Voids 3 - Labs CBC & Chem 7: 06/22/24 07:27 06/22/24 07:27 Labs: Abnormal Lab Results - Last 24 Hours (Table) 06/20/24 06/21/24 06/21/24 Range/Units 06:39 11:37 16:38 Glucose (74-99) mg/dL POC Glucose (mg/dL) 147 H 236 H (70-110) mg/dL Triglycerides 234.00 H (0.00-149.00) mg/dL VLDL Cholesterol, Calc 46.80 H (5.00-40.00) mg/dL HDL Cholesterol 30.20 L (40.00-60.00) mg/dL 06/21/24 06/22/24 06/22/24 Range/Units 20:06 06:08 07:27 Glucose 162 H (74-99) mg/dL POC Glucose (mg/dL) 242 H 168 H (70-110) mg/dL Triglycerides (0.00-149.00) mg/dL VLDL Cholesterol, Calc (5.00-40.00) mg/dL HDL Cholesterol (40.00-60.00) mg/dL
--- NOTE | 2024-06-22 16:34 | CA ---
Transthoracic Echo Report Name: Eleuterio Koch Age: 59 Gender: M : 1965 Exam Date: 06/22/2024 09:32 Exam Location: [place] [facility] Ht (in): 67 Wt (lb): 257 Ordering Physician: Erendira Ca MD Attending/Referring Phys: Nuclear Technician Jael Hi RDCS Procedure CPT: Indications: chf Cardiac Hx: CAD, COPD, HTN, post stent of mid LAD Technical Quality: Technically difficult study Contrast 1: Definity Total Dose (mL): 2 Contrast 2: Total Dose (mL): MEASUREMENTS (Male / Female) Normal Values 2D ECHO LV Diastolic Diameter PLAX 5.7 cm 4.2 - 5.9 / 3.9 - 5.3 cm LV Systolic Diameter PLAX 4.6 cm IVS Diastolic Thickness 1.2 cm 0.6 - 1.0 / 0.6 - 0.9 cm LVPW Diastolic Thickness 1.3 cm 0.6 - 1.0 / 0.6 - 0.9 cm LV Relative Wall Thickness 0.4 RV Internal Dim ED PLAX 2.9 cm LVOT Diameter 1.8 cm LV Diastolic Volume MOD 4C 110.4 cm??? LV Systolic Volume MOD 4C 62.7 cm??? LV Ejection Fraction MOD 4C 43.2 % LV Cardiac Index MOD 4C 1767.8 cm???/min???m??? LV Diastolic Length 4C 9.0 cm LV Systolic Length 4C 7.6 cm LA Volume 53.3 cm??? 18 - 58 / 22 - 52 cm??? LA Volume Index 22.2 cm???/m??? 16 - 28 cm???/m??? DOPPLER MV Area PHT 3.6 cm??? Mitral E Point Velocity 42.6 cm/s Mitral A Point Velocity 74.2 cm/s Mitral E to A Ratio 0.6 MV Deceleration Time 212.7 ms TR Peak Velocity 203.5 cm/s TR Peak Gradient 16.6 mmHg FINDINGS Left Ventricle Left ventricular ejection fraction is estimated at 50-55 %. Mildly increased septal wall thickness. No obvious regional wall motion abnormalities. Right Ventricle Mild right ventricular dilatation. Unable to estimate the right ventricular systolic pressure. Right Atrium Normal right atrial size. Left Atrium Normal left atrial size. Mitral Valve Mitral annular calcification. No mitral stenosis, regurgitation. Aortic Valve Trileaflet aortic valve. Thickened aortic valve without stenosis. Tricuspid Valve Structurally normal tricuspid valve. No tricuspid stenosis. Trace tricuspid regurgitation. Pulmonic Valve Pulmonic valve not well visualized. No pulmonic regurgitation. No pulmonic stenosis. Pericardium No pericardial effusion. Aorta Normal size aortic root and proximal ascending aorta. CONCLUSIONS Left ventricular ejection fraction 50-55% Mild increased left ventricular wall thickness Mild mitral calcification Trace tricuspid regurgitation Previewed by: Dr. Jamie Nails DO (Electronically Signed) Final Date: 22 June 2024 16:33
[2024-06-23] MEDS ORDERED: METOPROLOL SUCCINATE (ER) 50 MG TAB.ER.24H PO SCH (09:00)
[2024-06-23] MEDS ORDERED: amLODIPine 5 MG TAB PO SCH (09:00)
[2024-06-26] MEDS ORDERED: NON FORMULARY DRUG (Dulaglutide [Trulicity] 1.5 MG/0.5 ML Each) SQ SCH (09:00)
== END 2024-06-22 15:01 | disposition home or self-care (01) | DRG 175 ==
LOC: 3SCARD 12:55
PROVIDERS: ADMIT Internal Medicine; ATTEND Internal Medicine
PROC: 027034Z Dilation of Coronary Artery, One Artery with Drug-eluting Intraluminal Device, Percutaneous Approach (ICD-10-PCS; principal; 2024-06-19 15:25)
PROC: 4A033BC Measurement of Arterial Pressure, Coronary, Percutaneous Approach (ICD-10-PCS; principal; 2024-06-19 15:25)
PROC: B240ZZ3 Ultrasonography of Single Coronary Artery, Intravascular (ICD-10-PCS; principal; 2024-06-19 15:25)
DX: I25.10 Atherosclerotic heart disease of native coronary artery without angina pectoris (principal); E11.9 Type 2 diabetes mellitus without complications; E78.5 Hyperlipidemia, unspecified; F17.210 Nicotine dependence, cigarettes, uncomplicated; I10 Essential (primary) hypertension; J44.9 Chronic obstructive pulmonary disease, unspecified; I95.89 Other hypotension; Z79.84 Long term (current) use of oral hypoglycemic drugs; Z79.899 Other long term (current) drug therapy; Z79.85 Long-term (current) use of injectable non-insulin antidiabetic drugs; Z79.4 Long term (current) use of insulin; Z79.82 Long term (current) use of aspirin; Z71.3 Dietary counseling and surveillance; Z20.822 Contact with and (suspected) exposure to COVID-19
CPT/HCPCS: 71045; 80053; 80061; 82565; 83036; 83880; 85025; 87636; 93306; 94640; 94760

== ENCOUNTER 2024-06-30 21:57 | Inpatient (IN) | payer OTHER ==
--- NOTE | 2024-06-30 22:19 | ED ---
Chest Pain HPI - General Chief Complaint: Chest Pain Stated Complaint: Chest Pain Time Seen by Provider: 06/30/24 22:07 Source: patient, EMS Mode of arrival: EMS - History of Present Illness Initial Comments: This patient is a 59-year-old man who presents to have evaluation for pain along the left side of his sternum and also up into his neck. The patient states that this feels somewhat similar to his chronic neck pain. He states that the pains been intermittent since June 19 when he had stent placement. When asked about associated symptoms he denies but states that he does have some shortness of breath that he states feels like his usual COPD. The patient was given nitroglycerin and he felt that it helped a little bit but the pain continues. MD Complaint: chest pain -: days(s) Onset: during rest Pain Location: left chest Pain Radiation: neck Severity: moderate Quality: aching Consistency: intermittent Improves With: nitroglycerin Worsens With: nothing Treatments Prior to Arrival: aspirin, nitroglycerin - Related Data Home Medications Medication Instructions Recorded Confirmed Albuterol Inhaler [Ventolin Hfa 2 puff INHALATION RT-Q6H PRN 05/02/23 07/01/24 Inhaler] Cholecalciferol (Vitamin D3) 50 mcg PO DAILY 06/19/24 07/01/24 [Vitamin D3 (50 Mcg = 2000 Iu)] Dulaglutide [Trulicity] 1.5 mg SQ FR 06/19/24 07/01/24 Fluticasone Propionate 110 Mcg 2 puff INHALATION RT-BID 06/19/24 07/01/24 [Flovent 110 Mcg Inhaler] Insulin Glargine,Hum.rec.anlog 20 units SQ HS 06/19/24 07/01/24 [Lantus Solostar Pen] Montelukast [Singulair] 10 mg PO DAILY 06/19/24 07/01/24 glipiZIDE [Glucotrol] 10 mg PO AC-BRKFST 06/19/24 07/01/24 metFORMIN HCL ER [Glucophage XR] 1,000 mg PO BID-W/MEALS 06/19/24 07/01/24 Previous Rx's Medication Instructions Recorded Aspirin 81 mg PO DAILY #30 tab 06/22/24 Atorvastatin [Lipitor] 40 mg PO HS #30 tab 06/22/24 Dapagliflozin Propanediol [Farxiga] 10 mg PO DAILY #30 tab 06/22/24 Metoprolol Succinate (ER) [Toprol 50 mg PO DAILY #30 tab 06/22/24 XL] Nitroglycerin Sl Tabs [Nitrostat] 0.4 mg SUBLINGUAL Q5M PRN #20 tab 06/22/24 Prasugrel [Effient] 10 mg PO DAILY #30 tab 06/22/24 amLODIPine [Norvasc] 5 mg PO DAILY #30 tab 06/22/24 lisinopriL [Zestril] 2.5 mg PO DAILY #30 tab 06/22/24 Acetaminophen Tab [Tylenol] 650 mg PO Q6HR PRN tab 07/02/24 Nicotine 14Mg/24Hr Patch [Habitrol] 1 patch TRANSDERM DAILY #30 patch 07/02/24 Allergies Allergy/AdvReac Type Severity Reaction Status Date / Time ibuprofen AdvReac Nausea Verified 07/01/24 07:35 Review of Systems ROS Statement: Those systems with pertinent positive or pertinent negative responses have been documented in the HPI. ROS Other: All systems not noted in ROS Statement are negative. Constitutional: Denies: fever, chills, weakness Respiratory: Reports: dyspnea (States seems like his usual COPD). Denies: cough Cardiovascular: Reports: chest pain. Denies: palpitations, orthopnea, edema, syncope Gastrointestinal: Reports: nausea. Denies: abdominal pain, vomiting, diarrhea Genitourinary: Denies: dysuria, hematuria Musculoskeletal: Denies: back pain Skin: Denies: rash Neurological: Denies: headache, weakness EKG Findings - EKG Results: EKG: interpreted by ERMD, sinus rhythm (Rate 94 bpm), normal axis, normal QRS - Blocks, Donora, Hypertrophy, ST Abn: Repolarization changes or abnormalities: nonspecific abnormality, ST segment, and/or T wave Past Medical History Past Medical History: COPD, Diabetes Mellitus, Hyperlipidemia, Hypertension Additional Past Medical History / Comment(s): gout History of Any Multi-Drug Resistant Organisms: None Reported Past Surgical History: Heart Catheterization With Stent, Orthopedic Surgery Additional Past Surgical History / Comment(s): ORIF LT ANKLE. KNEE CAP REPLACED BILAT. BILAT EYES COSMETIC SX Past Anesthesia/Blood Transfusion Reactions: No Reported Reaction Past Psychological History: No Psychological Hx Reported Smoking Status: Current every day smoker Past Alcohol Use History: Occasional Past Drug Use History: Marijuana - Past Family History Mother Family Medical History: Cancer Father Family Medical History: Myocardial Infarction ([place]) General Exam General appearance: alert, in no apparent distress Head exam: Present: atraumatic, normocephalic Eye exam: Present: normal appearance. Absent: scleral icterus, conjunctival injection Neck exam: Present: normal inspection Respiratory exam: Present: normal lung sounds bilaterally. Absent: respiratory distress, wheezes, rales, rhonchi, stridor, accessory muscle use Cardiovascular Exam: Present: regular rate, normal rhythm, normal heart sounds. Absent: systolic murmur, diastolic murmur, rubs, gallop GI/Abdominal exam: Present: soft. Absent: distended, tenderness, guarding, rebound, rigid, mass Extremities exam: Present: normal inspection, normal capillary refill. Absent: pedal edema, calf tenderness Back exam: Present: normal inspection. Absent: CVA tenderness (R), CVA tenderness (L) Neurological exam: Present: alert Skin exam: Present: warm, dry, intact, normal color. Absent: rash Course Vital Signs 06/30/24 06/30/24 06/30/24 21:58 22:38 22:41 Temperature 98.7 F Pulse Rate 95 95 95 Respiratory 18 22 18 Rate Blood Pressure 114/73 119/89 135/99 O2 Sat by Pulse 96 96 Oximetry 07/01/24 01:46 Temperature Pulse Rate 87 Respiratory 18 Rate Blood Pressure 104/62 O2 Sat by Pulse 95 Oximetry Chest Pain MDM - MDM The patient had chest x-ray that I interpreted as negative for acute infiltrate, pneumothorax, congestive heart failure Was pt. sent in by a medical professional or institution ( PA, CONTRACT ASSOCIATE MANAGER, urgent care, hospital, or half-way...) When possible be specific @ -[No] Did you speak to anyone other than the patient for history (EMS, parent, family, police, friend...)? What history was obtained from this source @ -[No] Did you review nursing and triage notes (agree or disagree)? Why? @ -[I reviewed and agree with nursing and triage notes] Were old charts reviewed (outside hosp., previous admission, EMS record, old EKG, old radiological studies, urgent care reports/EKG's, half-way records)? Report findings @ -[Yes, old charts were reviewed, including previous cath report Differential Diagnosis (chest pain, altered mental status, abdominal pain women, abdominal pain men, vaginal bleeding, weakness, fever, dyspnea, syncope, headache, dizziness, GI bleed, back pain, seizure, CVA, palpatations, mental health, musculoskeletal)? @ -[Differential Chest Pain: Stable Angina, Unstable Angina, STEMI, NSTEMI Aortic Dissection, Pneumothorax, Musculoskeletal, Esophageal Spasm GERD, Cholecystitis, Pancreatitis, Zoster, this is not meant to be an all-inclusive list. EKG interpreted by me (3pts min.). @ -[I interpreted as above] X-rays interpreted by me (1pt min.). @ -[I interpreted as above CT interpreted by me (1pt min.). @ -[None done] U/S interpreted by me (1pt. min.). @ -[None done] What testing was considered but not performed or refused? (CT, X-rays, U/S, labs)? Why? @ -[None] What meds were considered but not given or refused? Why? @ -[None] Did you discuss the management of the patient with other professionals (professionals i.e. , PA, CONTRACT ASSOCIATE MANAGER, lab, RT, psych nurse, licensed clinical social worker, cushion maker, teacher, ground nuclear weapons assembly officer, case aide)? Give summary @ -[Case discussed with admitting physician and treatment recommendations incorporated Was smoking cessation discussed for >3mins.? @ -[Yes Was critical care preformed (if so, how long)? @ -[No] Were there social determinants of health that impacted care today? How? (Homelessness, low income, unemployed, alcoholism, drug addiction, transportation, low edu. Level, literacy, decrease access to med. care, nursing home, rehab)? @ -[No] Was there de-escalation of care discussed even if they declined (Discuss DNR or withdrawal of care, Hospice)? DNR status @ -[No] What co-morbidities impacted this encounter? (DM, HTN, Smoking, COPD, CAD, Cancer, CVA, ARF, Chemo, Hep., AIDS, mental health diagnosis, sleep apnea, morbid obesity)? @ -[History of CAD. Chronic neck pain Was patient admitted / discharged? Hospital course, mention meds given and route, prescriptions, significant lab abnormalities, going to OR and other pertinent info. @ -Patient is 59-year-old man presenting with pain similar to that coming previous CAD. Previous cath report indicates that there was a narrowing that may need attention now. The patient admitted to have cardiology consultation. Undiagnosed new problem with uncertain prognosis? @ -[No] Drug Therapy requiring intensive monitoring for toxicity (Heparin, Nitro, Insulin, Cardizem)? @ -[No] Were any procedures done? @ -[No] Diagnosis/symptom? @ -[Acute chest pain Acute, or Chronic, or Acute on Chronic? @ -[Acute Uncomplicated (without systemic symptoms) or Complicated (systemic symptoms)? @ -[Uncomplicated Side effects of treatment? @ -[No] Exacerbation, Progression, or Severe Exacerbation? @ -[No] Poses a threat to life or bodily function? How? (Chest pain, [place], [place], pneumonia, PE, COPD, DKA, ARF, appy, cholecystitis, CVA, Diverticulitis, Homicidal, Suicidal, threat to staff... and all critical care pts) @ -[Requires cardiology evaluation All treatments are based on ideal body weight as in ED triage Disposition Clinical Impression: Chest pain Disposition: ADMITTED IP TO THIS HOSP Condition: Stable Is patient prescribed a controlled substance at d/c from ED?: No
[2024-06-30] MEDS: ASPIRIN 81 MG PO STA (22:30)
[2024-06-30] MEDS: MORPHINE SULFATE 4 MG/ML SYRINGE IV STA (22:34)
[2024-06-30] MEDS: NITROGLYCERIN SL TABS 0.4 MG TAB SUBLINGUAL STA (22:37)
[2024-06-30 22:41] LABS: Basophils # (A) 0.1 k/uL (0-0.2); Basophils % (A) 1 %; Eosinophils # (A) 0.3 k/uL (0-0.7); Eosinophils % (A) 2 %; HCT 40.7 % (39.0-53.0); HGB 13.3 gm/dL (13.0-17.5); Lymphocytes # (A) 3.8 k/uL (1.0-4.8); Lymphocytes % (A) 29 %; MCHC 32.7 g/dL (31.0-37.0); MCV 82.8 fL (80.0-100.0); Mean Platelet Volume 8.6; Monocytes # (A) 0.7 k/uL (0-1.0); Monocytes % (A) 6 %; Neutrophils # (A) 7.8 k/uL (1.3-7.7); Neutrophils % (A) 61 %; Platelet Count 243 k/uL (150-450); RBC 4.92 m/uL (4.30-5.90); RDW 13.4 % (11.5-15.5); WBC 12.8 k/uL (3.8-10.6)
[2024-06-30 22:56] LABS: Partial Thromboplastin Time 22.4 sec (22.0-30.0); Prothrombin Time 11.1 sec (10.0-12.5)
[2024-06-30 23:52] LABS: ALT 31 U/L (4-49); AST 30 U/L (17-59); African American GFR (CKD) >90 (>60 ml/min/1.73 sqM); Albumin 4.2 g/dL (3.5-5.0); Alkaline Phosphatase 102 U/L (38-126); Amylase 57 U/L (30-110); Anion Gap 10 mmol/L; Blood Urea Nitrogen 15 mg/dL (9-20); Calcium 9.4 mg/dL (8.4-10.2); Carbon Dioxide 28 mmol/L (22-30); Chloride 100 mmol/L (98-107); Glucose 208 mg/dL (74-99); Lipase 178 U/L (23-300); Magnesium 1.7 mg/dL (1.6-2.3); Non-African American GFR(CKD) >90 (>60 ml/min/1.73 sqM); Potassium 4.2 mmol/L (3.5-5.1); Sodium 138 mmol/L (137-145); Total Bilirubin 0.5 mg/dL (0.2-1.3); Total Protein 7.9 g/dL (6.3-8.2)
[2024-07-01] MEDS ORDERED: NITROGLYCERIN SL TABS 0.4 MG TAB SUBLINGUAL PRN ×3 (00:54→14:33)
[2024-07-01] MEDS ORDERED: ALBUTEROL NEBULIZED 2.5 MG/3 ML INHALATION PRN (01:05)
--- NOTE | 2024-07-01 02:24 | XR ---
EXAM: XR Chest, 2 Views CLINICAL HISTORY: ITS.REASON XR Reason: Chest Pain TECHNIQUE: Frontal and lateral views of the chest. COMPARISON: No relevant prior studies available. FINDINGS: Lungs: Unremarkable. No consolidation. Pleural space: Unremarkable. No pneumothorax. Heart: Unremarkable. No cardiomegaly. Mediastinum: Unremarkable. Bones/joints: Unremarkable. IMPRESSION: No consolidation.
[2024-07-01 06:10] LABS: Glucose,Whole Blood 167 mg/dL (70-110)
[2024-07-01] MEDS: FLUTICASONE 110 MCG INHALER INHALATION SCH (06:35)
[2024-07-01] MEDS: metFORMIN 500 MG TAB PO SCH (08:19)
[2024-07-01] MEDS ORDERED: ALPRAZolam 0.25 MG TAB PO PRN (08:24)
[2024-07-01] MEDS ORDERED: ALPRAZolam 0.5 MG TAB PO PRN (08:24)
[2024-07-01] MEDS: PRASUGREL 10 MG TAB PO SCH (08:38)
[2024-07-01] MEDS: amLODIPine 5 MG TAB PO SCH (08:38)
[2024-07-01] MEDS: glipiZIDE 5 MG TAB PO SCH (08:38)
[2024-07-01] MEDS: METOPROLOL SUCCINATE (ER) 50 MG TAB.ER.24H PO SCH (08:38)
[2024-07-01] MEDS: ASPIRIN 81 MG PO SCH (08:38)
[2024-07-01] MEDS: CHOLECALCIFEROL 25 MCG (1000 IU) TABLET PO SCH (08:38)
[2024-07-01] MEDS: DAPAGLIFLOZIN PROPANEDIOL 10 MG TABLET PO SCH (08:39)
[2024-07-01] MEDS: MONTELUKAST 10 MG TAB PO SCH (08:39)
[2024-07-01] MEDS: ATORVASTATIN 80 MG TAB PO STA (09:36)
[2024-07-01] MEDS: ASPIRIN 325 MG TAB PO STA (09:38)
--- NOTE | 2024-07-01 10:46 | P.CRDCN ---
History of Present Illness Consult date: 07/01/24 Consult reason: chest pain History of present illness: This is 59-year-old male recently established with Dr. Reaves during hospitalization 06/19 - 06/22 at which time patient initially presented to [facility] for abnormal myocardial perfusion imaging stress test showing anterior wall ischemia. He underwent cardiac catheterization that showed severe disease involving the first OM and LAD. He was then transferred to [facility] and underwent PCI of the mid LAD because of abnormal IFR. OM assessment of the IFR was negative therefore no intervention was done in the OM. Patient was discharged home on 06/22. He also has a past medical history of diabetes mellitus type 2, hypertension, hyperlipidemia. We have been asked to evaluate the patient for chest pain. Patient states he developed chest pain and shortness of breath and was feeling hot and cold. He states he has been taking all of his medications as directed since he left the hospital. Blood pressure 112/72, heart rate 81, pulse ox 96% on room air. -EKG: Sinus rhythm with no acute ST-T wave changes. Repeat EKG obtained while experiencing chest pain showed no acute ST changes. -Chest x-ray: No abnormality -Laboratory studies: Troponin negative x 3. WBC 12.8, hemoglobin 13.3, D-dimer 0.5, BUN 15 creatinine 0.85. -Home cardiac medications: Amlodipine 5 mg daily, aspirin 81 mg daily, Lipitor 40 mg at bedtime, Farxiga 10 mg daily, lisinopril 2.5 mg daily, Toprol XL 50 mg daily, Nitrostat as needed, Effient 10 mg daily. -Echocardiogram performed on 06/22/2024 revealed EF 50 to 55%, mild mitral calcification, trace tricuspid regurgitation. Review Of Systems: At the time of my exam: CONSTITUTIONAL: Denies fever or chills. HEENT: Denies blurred vision, vision changes, or eye pain. Denies hemoptysis CARDIOVASCULAR: Denies chest pain. Denies orthopnea. Denies PND. Denies palpitations RESPIRATORY: Denies shortness of breath. GASTROINTESTINAL: Denies abdominal pain. Denies nausea or vomiting. HEMATOLOGIC: Denies bleeding disorders. GENITOURINARY: Denies any blood in urine. SKIN: Denies puritis. Denies rash. Physical examination: Gen: This is 59-year-old black male in no acute respiratory distress. VS: reviewed HEENT: Head is atraumatic, normocephalic. Pupils equal, round. Sclerae is anicteric. NECK: Supple. No JVD. LUNGS: Clear to auscultation. No wheezes or rhonchi. No intercostal retractions. HEART: Regular rate and rhythm. No murmur. ABDOMEN: Soft No tenderness. EXTREMITIES: No pedal edema. No calf tenderness. NEUROLOGICAL: Patient is awake, alert and oriented x3. Assessment: Chest pain, possible unstable angina Recent non-ST ELISEO status post PCI of the mid LAD performed on 06/19 Diabetes mellitus type 2 Hypertension Hyperlipidemia Plan: Resume patient's home cardiac medications N.p.o. Schedule patient for cardiac catheterization today with Dr. Reaves Further recommendations to follow based upon clinical course Thank you kindly for this consultation. Nurse practitioner note has been reviewed, I agree with documented findings and plan of care. Patient was seen and examined. Past Medical History Past Medical History: COPD, Diabetes Mellitus, Hyperlipidemia, Hypertension Additional Past Medical History / Comment(s): gout History of Any Multi-Drug Resistant Organisms: None Reported Past Surgical History: Heart Catheterization With Stent, Orthopedic Surgery Additional Past Surgical History / Comment(s): ORIF LT ANKLE. KNEE CAP REPLACED BILAT. BILAT EYES COSMETIC SX Past Anesthesia/Blood Transfusion Reactions: No Reported Reaction Date of Last Stent Placement:: 06-19-24 Past Psychological History: No Psychological Hx Reported Smoking Status: Current every day smoker Past Alcohol Use History: Occasional Additional Past Alcohol Use History / Comment(s): SMOKING 1/2 PPD SINCE AGE 9 Past Drug Use History: Marijuana Additional Drug Use History / Comment(s): USES MARIJUANA DAILY - Past Family History Mother Family Medical History: Cancer Additional Family Medical History / Comment(s): lung cancer Father Family Medical History: Myocardial Infarction ([place]) Medications and Allergies Home Medications Medication Instructions Recorded Confirmed Type Albuterol Inhaler [Ventolin Hfa 2 puff INHALATION RT-Q6H PRN 05/02/23 07/01/24 History Inhaler] Cholecalciferol (Vitamin D3) 50 mcg PO DAILY 06/19/24 07/01/24 History [Vitamin D3 (50 Mcg = 2000 Iu)] Dulaglutide [Trulicity] 1.5 mg SQ FR 06/19/24 07/01/24 History Fluticasone Propionate 110 Mcg 2 puff INHALATION RT-BID 06/19/24 07/01/24 History [Flovent 110 Mcg Inhaler] Insulin Glargine,Hum.rec.anlog 20 units SQ HS 06/19/24 07/01/24 History [Lantus Solostar Pen] Montelukast [Singulair] 10 mg PO DAILY 06/19/24 07/01/24 History glipiZIDE [Glucotrol] 10 mg PO AC-BRKFST 06/19/24 07/01/24 History metFORMIN HCL ER [Glucophage XR] 1,000 mg PO BID-W/MEALS 06/19/24 07/01/24 History Aspirin 81 mg PO DAILY #30 tab 06/22/24 07/01/24 Rx Atorvastatin [Lipitor] 40 mg PO HS #30 tab 06/22/24 07/01/24 Rx Dapagliflozin Propanediol [Farxiga] 10 mg PO DAILY #30 tab 06/22/24 07/01/24 Rx Metoprolol Succinate (ER) [Toprol 50 mg PO DAILY #30 tab 06/22/24 07/01/24 Rx XL] Nitroglycerin Sl Tabs [Nitrostat] 0.4 mg SUBLINGUAL Q5M PRN #20 tab 06/22/24 07/01/24 Rx Prasugrel [Effient] 10 mg PO DAILY #30 tab 06/22/24 07/01/24 Rx amLODIPine [Norvasc] 5 mg PO DAILY #30 tab 06/22/24 07/01/24 Rx lisinopriL [Zestril] 2.5 mg PO DAILY #30 tab 06/22/24 07/01/24 Rx Allergies Allergy/AdvReac Type Severity Reaction Status Date / Time ibuprofen AdvReac Nausea Verified 07/01/24 07:35 Physical Exam Vitals: Vital Signs Temp Pulse Pulse Resp BP BP BP 07/01/24 07:00 98.6 F 81 15 112/72 07/01/24 04:59 114/79 07/01/24 02:00 98.0 F 81 15 93/46 07/01/24 01:46 87 18 104/62 06/30/24 22:41 95 18 135/99 06/30/24 22:38 95 22 119/89 06/30/24 21:58 98.7 F 95 18 114/73 Pulse Ox 07/01/24 07:00 96 07/01/24 04:59 07/01/24 02:00 97 07/01/24 01:46 95 06/30/24 22:41 96 06/30/24 22:38 96 06/30/24 21:58 Intake and Output 06/30/24 07/01/24 07/01/24 22:59 06:59 14:59 Other: Voiding Method Toilet # Voids 2 Weight 114.759 kg 114.759 kg Results 06/30/24 22:28 06/30/24 23:30 Cardiac Enzymes 06/30/24 06/30/24 07/01/24 Range/Units 22:28 23:30 01:22 AST 30 (17-59) U/L Troponin I 0.017 <0.012 (0.000-0.034) ng/mL 07/01/24 Range/Units 04:34 AST (17-59) U/L Troponin I <0.012 (0.000-0.034) ng/mL Coagulation 06/30/24 Range/Units 22:28 PT 11.1 (10.0-12.5) sec APTT 22.4 (22.0-30.0) sec CBC 06/30/24 Range/Units 22:28 WBC 12.8 H (3.8-10.6) k/uL RBC 4.92 (4.30-5.90) m/uL Hgb 13.3 (13.0-17.5) gm/dL Hct 40.7 (39.0-53.0) % Plt Count 243 (150-450) k/uL Comprehensive Metabolic Panel 06/30/24 Range/Units 23:30 Sodium 138 (137-145) mmol/L Potassium 4.2 (3.5-5.1) mmol/L Chloride 100 (98-107) mmol/L Carbon Dioxide 28 (22-30) mmol/L BUN 15 (9-20) mg/dL Creatinine 0.85 (0.66-1.25) mg/dL Glucose 208 H (74-99) mg/dL Calcium 9.4 (8.4-10.2) mg/dL AST 30 (17-59) U/L ALT 31 (4-49) U/L Alkaline Phosphatase 102 (38-126) U/L Total Protein 7.9 (6.3-8.2) g/dL Albumin 4.2 (3.5-5.0) g/dL Current Medications Generic Name Dose Route Start Last Admin Trade Name Freq PRN Reason Stop Dose Admin Albuterol Sulfate 2.5 mg 07/01/24 01:05 Albuterol Nebulized 2.5 Mg/3 Ml INHALATION RT-Q6H PRN Shortness Of Breath Amlodipine Besylate 5 mg 07/01/24 09:00 Amlodipine 5 Mg Tab PO DAILY [facility] Aspirin 81 mg 07/01/24 09:00 Aspirin 81 Mg PO DAILY [facility] Atorvastatin Calcium 40 mg 07/01/24 21:00 Atorvastatin 40 Mg Tab PO HS [facility] Cholecalciferol 50 mcg 07/01/24 09:00 Cholecalciferol 25 Mcg (1000 Iu) Tablet PO DAILY [facility] Dapagliflozin 10 mg 07/01/24 09:00 Dapagliflozin Propanediol 10 Mg Tablet PO DAILY [facility] Fluticasone Propionate 1 puff 07/01/24 08:00 07/01/24 06:35 Fluticasone 110 Mcg Inhaler INHALATION 1 puff RT-BID [facility] Administration Glipizide 10 mg 07/01/24 07:30 Glipizide 5 Mg Tab PO AC-BRKFST [facility] Insulin Glargine 20 unit 07/01/24 21:00 Insulin Glargine (Lantus) 100 Unit/Ml Syr SQ HS [facility] Lisinopril 2.5 mg 07/01/24 09:00 Lisinopril 2.5 Mg Tab PO DAILY [facility] Metformin HCl 1,000 mg 07/01/24 07:30 Metformin 500 Mg Tab PO BID-W/MEALS [facility] Metoprolol Succinate 50 mg 07/01/24 09:00 Metoprolol Succinate (Er) 50 Mg Tab.Er.24h PO DAILY [facility] Montelukast Sodium 10 mg 07/01/24 09:00 Montelukast 10 Mg Tab PO DAILY [facility] Nitroglycerin 0.4 mg 07/01/24 00:54 Nitroglycerin Sl Tabs 0.4 Mg Tab SUBLINGUAL Q5M PRN Chest Pain Non-Formulary Medication 1.5 mg 07/03/24 09:00 Dulaglutide [Trulicity] SQ FR [facility] Prasugrel 10 mg 07/01/24 09:00 Prasugrel 10 Mg Tab PO DAILY [facility] Intake and Output 06/30/24 07/01/24 07/01/24 22:59 06:59 14:59 Other: Voiding Method Toilet # Voids 2 Weight 114.759 kg 114.759 kg 06/30/24 22:28 06/30/24 23:30
[2024-07-01 12:21] LABS: Glucose,Whole Blood 117 mg/dL (70-110)
[2024-07-01] MEDS: HEPARIN SODIUM,PORCINE 10,000 UNIT in SODIUM CHLORIDE 0.9% 1,000 ML IRRIGATION PRN (13:31)
[2024-07-01] MEDS: HEPARIN SODIUM,PORCINE (1 ML) 2,500 UNIT in SODIUM CHLORIDE 0.9% 250 ML IRRIGATION PRN (13:31)
[2024-07-01] MEDS: SODIUM CHLORIDE 0.9% 1,000 ML IV ONE (13:31)
[2024-07-01] MEDS: MIDAZOLAM 2 MG/2 ML VIAL IVP ONE (13:52)
[2024-07-01] MEDS: LIDOCAINE 1% INJ 10MG/ML (20 ML MDV) SQ ONE (13:52)
[2024-07-01] MEDS: HEPARIN SODIUM 1,000 UN/ML (10ML VL) IVP ONE (14:01)
[2024-07-01] MEDS ORDERED: DEXTROSE 50% SYRINGE 50 ML IVP PRN ×2 (14:01)
[2024-07-01] MEDS: fentaNYL (PF) 50 MCG/1 ML VIAL IVP ONE (14:12)
[2024-07-01] MEDS ORDERED: ACETAMINOPHEN TAB 325 MG TAB PO PRN (14:13)
[2024-07-01] MEDS ORDERED: HYDROmorphone 0.5 MG/0.5 ML SYRINGE IVP PRN (14:13)
[2024-07-01] MEDS ORDERED: HYDROcodone/APAP 5-325MG 1 EACH TAB PO PRN (14:13)
[2024-07-01] MEDS ORDERED: ZOLPIDEM 5 MG TAB PO PRN (14:33)
[2024-07-01] MEDS ORDERED: RX INFO: IV CONTRAST WAS GIVEN 1 EACH MISC MISCELLANE PRN (14:33)
[2024-07-01] MEDS ORDERED: MAG HYDROX/AL HYDROX/SIMETH 30 ML CUP PO PRN (14:33)
[2024-07-01] MEDS ORDERED: ATROPINE SULFATE 0.1 MG/ML 10ML SYRINGE IV PRN (14:33)
--- NOTE | 2024-07-01 14:39 | P.PCN ---
Date of Procedure: 07/01/24 Operative Findings: CARDIAC CATHETERIZATION AND PERCUTANEOUS CORONARY INTERVENTION PERFORMING PHYSICIAN: Rishi Reaves MD, [facility] PROCEDURE PERFORMED: 1. Selective right and left coronary angiogram 2. Successful stenting of OM1 using 3.5 x 23 mm Xience JALEEL with an excellent angiographic results 3. Adjunctive use of IVUS and IFR and lithotripsy balloon 4. Ultrasound-guided access of the right common femoral artery and selective right common femoral artery angiogram INDICATION: Chest discomfort concerning for unstable angina in this 59-year-old - [place] gentleman who is known to have CAD with prior stenting of the LAD and known intermediate to severe disease involving OM1 as well as LAD COMPLICATION: None APPROACH: Right common femoral artery LEVEL OF SEDATION: Moderate with the sedation time off 39 minutes PROCEDURE DESCRIPTION: After obtaining informed consent the patient was brought to the cardiac Food Production Associate with right common femoral artery was cannulated using micropuncture technique under ultrasound guidance the micropuncture wire passed easily then I placed a 6 [place] 11 cm sheath at the right common femoral artery with I did selective left coronary angiogram which revealed severe disease involving OM1 of the left circumflex. I did IVUS after I decided to intervene. IVUS revealed a diameter between 3.25 to 3.5 mm with extremely calcified vessel with an arc of calcium exceeding 270 degree. I decided to do shockwave balloon. Shockwave balloon was performed using 3.5 mm. Subsequently I deployed 3.5 x 23 mm stent which was postdilated using 3.5 mm NC balloon with an angiogram showing excellent angiographic results. After that I decided to do an IFR of the LAD. After zeroing Dobler wire and equalizing between the Dobler wire and guiding catheter the left main was engaged and the LAD was wired with IFR came into at 0.94. After that we did selective right coronary angiogram using JR4 catheter. By the end selective right common femoral artery angiogram was performed SELECTIVE CORONARY ANGIOGRAM: The right coronary artery: Moderate caliber vessel and nondominant vessel with intermediate to severe disease Left main: Is angiographically normal The left circumflex: Large caliber vessel and a dominant vessel gives rise into an OM1 which has a tight lesion appears to be in the range of 80% The left anterior descending artery: The stent in the very proximal to mid LAD is patent. The mid LAD has intermediate lesion documented to be nonflow limiting by Doppler wire CONCLUSION: 1. Patent stent in the mid LAD. Intermediate disease involving the LAD distal to the stented segment documented to be nonflow limiting by Doppler wire 2. Severe disease involving OM1. I did perform successful PCI of OM1 POSTPROCEDURE MANAGEMENT: 1. Dual antiplatelet therapy using aspirin and Effient for 6-12 month 2. Aggressive cholesterol control 3. Follow-up with the patient
--- NOTE | 2024-07-01 15:05 | HP ---
HISTORY AND PHYSICAL CHIEF COMPLAINT: Chest pain. HISTORY OF PRESENT ILLNESS: This is a 59-year-old gentleman with a past medical history of multiple medical problems including recent CAD with stenting, who was complaining of chest pain. Initially, the pain on the left side, but now, the patient is complaining of bilateral chest pains and EKG showed nonspecific ST-T changes. Troponins are negative. Cardiology is planning cardiac catheterization. The patient had lesions of obtuse marginal, which is not stented during the last time because of negative IFR. There is no history of any fever, rigors, or chills. PAST MEDICAL HISTORY: Reviewed and includes COPD, diabetes mellitus type 2, history of CAD with stenting. Rest of history and rest of chart is also reviewed. HOME MEDICATIONS: Glucophage XR. Dose and rest of medications is reviewed. ALLERGIES: Ibuprofen. FAMILY HISTORY: History of lung cancer. SOCIAL HISTORY: Continued smoking and THC. REVIEW OF SYSTEMS: Fourteen-point review of systems negative except as mentioned earlier. PHYSICAL EXAMINATION: VITAL SIGNS: Pulse is 81, blood pressure 112/72, respirations 15 HEENT: Conjunctivae normal. NECK: No jugular venous distention. CARDIOVASCULAR: S1, S2. RESPIRATIONS: Breath sounds diminished at the bases. ABDOMEN: Soft and nontender. LEGS: No edema. NERVOUS SYSTEM: No stroke. LABORATORY DATA: Reviewed. EKG reviewed. ASSESSMENT: 1. Chest pain with possible unstable angina. 2. History of recent cardiac catheterization with stenting. 3. Chronic obstructive pulmonary disease. 4. Diabetes mellitus type 2. 5. Hypertension. 6. Hyperlipidemia. RECOMMENDATIONS: This 59-year-old gentleman presented with multiple complex medical issues. We will continue with the current medications, continue with symptomatic treatment. Continue with unstable angina protocol closely with Cardiology. Cardiac catheterization. Monitor blood sugars closely. Guarded prognosis. Further recommendations to follow. MMODL / IJN: [id number] /
[2024-07-01] MEDS: SODIUM CHLORIDE 0.9% 1,000 ML in EMPTY BAG 1 BAG IV SCH ×2 (17:10→17:30)
[2024-07-01 17:18] LABS: Glucose,Whole Blood 130 mg/dL (70-110)
[2024-07-01] MEDS: INSULIN LISPRO (HumaLOG) 100 UNIT/ML 10 mL VL SQ SCH (17:29)
[2024-07-01] MEDS: NICOTINE 14MG/24HR PATCH TRANSDERM SCH (18:48)
[2024-07-01 20:18] LABS: Glucose,Whole Blood 191 mg/dL (70-110)
[2024-07-01] MEDS: ATORVASTATIN 40 MG TAB PO SCH (21:08)
[2024-07-01] MEDS: INSULIN GLARGINE (LANTUS) 100 UNIT/ML SYR SQ SCH (21:08)
[2024-07-02 04:25] VITALS: TEMP 98.1
[2024-07-02 05:43] LABS: Glucose,Whole Blood 148 mg/dL (70-110)
[2024-07-02 08:04] VITALS: BP 121/74; PULSE 93; RESP 18
[2024-07-02 08:29] LABS: Basophils # (A) 0.08 X 10*3/uL (0.00-0.10); Basophils % (A) 0.8 %; Eosinophils # (A) 0.23 X 10*3/uL (0.04-0.35); Eosinophils % (A) 2.2 %; HGB 13.9 g/dL (13.0-17.0); Lymphocytes # (A) 2.16 X 10*3/uL (0.90-5.00); Lymphocytes % (A) 20.7 %; MCH 27.3 pg (27.0-32.0); MCHC 33.1 g/dL (32.0-37.0); MCV 82.5 FL (80.0-97.0); Mean Platelet Volume 11.6 FL (9.5-12.2); Monocytes # (A) 1.01 X 10*3/uL (0.20-1.00); Monocytes % (A) 9.7 %; NRBC Per 100 WBC 0 X 10*3/uL (0.00-0.01); Neutrophils % (A) 66.2 %; Platelet Count 225 X 10*3/uL (140-440); RBC 5.09 X 10*6/uL (4.40-5.60); RDW 13.4 % (11.5-14.5); WBC 10.42 X 10*3/uL (4.50-10.00)
[2024-07-02 08:38] LABS: ALT 36 U/L (10-49); AST 41 U/L (14-35); Albumin 3.8 g/dL (3.8-4.9); Albumin/Globulin Ratio 1.19 Ratio (1.60-3.17); Alkaline Phosphatase 74 U/L (41-126); Blood Urea Nitrogen 10.8 mg/dL (9.0-27.0); Carbon Dioxide 24.6 mmol/L (21.6-31.8); Chloride 103 mmol/L (96-109); Chol/HDL Ratio 6.21 Ratio; Globulin 3.2 g/dL (1.6-3.3); Glucose 140 mg/dL (70-110); Potassium 3.9 mmol/L (3.5-5.5); Sodium 140 mmol/L (135-145); Total Bilirubin 0.5 mg/dL (0.3-1.2)
[2024-07-02] MEDS ORDERED: ASPIRIN 325 MG TAB PO SCH (09:00)
[2024-07-02 09:29] LABS: LDL Cholesterol,Calculated 62.3 mg/dL (0.0-131.0)
--- NOTE | 2024-07-02 10:19 | P.PN ---
Subjective Progress Note Date: 07/02/24 Consult reason: chest pain History of present illness: This is 59-year-old male recently established with Dr. Reaves during hospitalization 06/19 - 06/22 at which time patient initially presented to [facility] for abnormal myocardial perfusion imaging stress test showing anterior wall ischemia. He underwent cardiac catheterization that showed severe disease involving the first OM and LAD. He was then transferred to [facility] and underwent PCI of the mid LAD because of abnormal IFR. OM assessment of the IFR was negative therefore no intervention was done in the OM. Patient was discharged home on 06/22. He also has a past medical history of diabetes mellitus type 2, hypertension, hyperlipidemia. We have been asked to evaluate the patient for chest pain. Patient states he developed chest pain and shortness of breath and was feeling hot and cold. He states he has been taking all of his medications as directed since he left the hospital. Blood pressure 112/72, heart rate 81, pulse ox 96% on room air. -EKG: Sinus rhythm with no acute ST-T wave changes. Repeat EKG obtained while experiencing chest pain showed no acute ST changes. -Chest x-ray: No abnormality -Laboratory studies: Troponin negative x 3. WBC 12.8, hemoglobin 13.3, D-dimer 0.5, BUN 15 creatinine 0.85. -Home cardiac medications: Amlodipine 5 mg daily, aspirin 81 mg daily, Lipitor 40 mg at bedtime, Farxiga 10 mg daily, lisinopril 2.5 mg daily, Toprol XL 50 mg daily, Nitrostat as needed, Effient 10 mg daily. -Echocardiogram performed on 06/22/2024 revealed EF 50 to 55%, mild mitral calcification, trace tricuspid regurgitation. 07/02 Patient seen and examined. Yesterday, patient underwent cardiac catheterization with Dr. Reaves which revealed patent stent to the mid LAD. Intermediate disease involving the LAD distal to the stented segment documented to be none flow- limiting by Doppler wire. Severe disease involving OM1. Patient underwent successful PCI of the OM1. This morning, patient denies having any chest pain. Right groin with no bleeding or hematoma. Blood pressure 121/74, heart rate 93, pulse ox 97% on room air. Repeat blood work reveals hemoglobin 13.9, WBC 10.4, creatinine 0.8. Physical examination: Gen: This is 59-year-old black male in no acute respiratory distress. VS: reviewed LUNGS: Clear to auscultation. No wheezes or rhonchi. No intercostal retractions. HEART: Regular rate and rhythm. No murmur. ABDOMEN: Soft No tenderness. EXTREMITIES: No pedal edema. No calf tenderness. NEUROLOGICAL: Patient is awake, alert and oriented x3. Assessment: Chest pain, possible unstable angina status post cardiac catheterization and PCI of the OM1 07/01 Recent non-ST ELISEO status post PCI of the mid LAD performed on 06/19 Diabetes mellitus type 2 Hypertension Hyperlipidemia Plan: Continue patient's home cardiac medications Patient is cleared for discharge from cardiology and will follow-up with Dr. Reaves in 1 week. Nurse practitioner note has been reviewed, I agree with documented findings and plan of care. Patient was seen and examined. Objective - Vital Signs Vital signs: Vital Signs Temp 98.1 F 07/02/24 07:00 Pulse 93 07/02/24 07:00 Resp 18 07/02/24 07:00 BP 121/74 07/02/24 07:00 Pulse Ox 97 07/02/24 07:00 FiO2 Intake & Output 07/01/24 07/02/24 07/02/24 18:59 06:59 18:59 Intake Total 870 Output Total 800 Balance 70 Intake: IV 630 Oral 240 Output: Urine 800 Other: Voiding Method Toilet Urinal # Voids 2 - Labs CBC & Chem 7: 07/02/24 04:38 07/02/24 04:35 Labs: Abnormal Lab Results - Last 24 Hours (Table) 07/01/24 07/01/24 07/01/24 Range/Units 12:19 17:17 20:16 WBC (4.50-10.00) X 10*3/uL Monocytes # (0.20-1.00) X 10*3/uL Anion Gap (4.00-12.00) mmol/L Glucose (70-110) mg/dL POC Glucose (mg/dL) 117 H 130 H 191 H (70-110) mg/dL Hemoglobin A1c (<=6.0) % AST (14-35) U/L Albumin/Globulin Ratio (1.60-3.17) Ratio HDL Cholesterol (40.00-60.00) mg/dL 07/02/24 07/02/24 07/02/24 Range/Units 04:35 04:38 04:38 WBC 10.42 H (4.50-10.00) X 10*3/uL Monocytes # 1.01 H (0.20-1.00) X 10*3/uL Anion Gap 12.40 H (4.00-12.00) mmol/L Glucose 140 H (70-110) mg/dL POC Glucose (mg/dL) (70-110) mg/dL Hemoglobin A1c 12.5 H (<=6.0) % AST 41 H (14-35) U/L Albumin/Globulin Ratio 1.19 L (1.60-3.17) Ratio HDL Cholesterol 26.10 L (40.00-60.00) mg/dL 07/02/24 Range/Units 05:41 WBC (4.50-10.00) X 10*3/uL Monocytes # (0.20-1.00) X 10*3/uL Anion Gap (4.00-12.00) mmol/L Glucose (70-110) mg/dL POC Glucose (mg/dL) 148 H (70-110) mg/dL Hemoglobin A1c (<=6.0) % AST (14-35) U/L Albumin/Globulin Ratio (1.60-3.17) Ratio HDL Cholesterol (40.00-60.00) mg/dL
[2024-07-02 11:02] VITALS: BMI 39.6
[2024-07-02 12:37] LABS: Glucose,Whole Blood 165 mg/dL (70-110)
[2024-07-03] MEDS ORDERED: NON FORMULARY DRUG (Dulaglutide [Trulicity] 1.5 MG/0.5 ML Each) SQ SCH (09:00)
--- NOTE | 2024-07-05 14:33 | P.DS ---
Providers Date of admission: 07/01/24 01:05 Expected date of discharge: 07/02/24 Attending physician: Erendira Ca Consults: 07/01/24 00:54 Consult Physician Routine Consulting Provider: Rishi Reaves Consult Reason/Comments: Chest pain Do you want consulting provider notified?: Yes 07/01/24 14:33 Consult Physician Routine Consulting Provider: [facility] Consult Reason/Comments: Post Interventional Patient Do you want consulting provider notified?: Already Contacted Primary care physician: Kamryn Ernandez [facility] Course: Final diagnosis Chest pain, possible unstable angina, status post cardiac catheterization with stenting to the OM History of recent cardiac catheterization with stenting Chronic obstructive pulmonary disease, not in exacerbation Diabetes mellitus, type II Hypertension Hyperlipidemia Obesity with a BMI of 39.6 GI prophylaxis DVT prophylaxis Full code Discharge disposition Patient is being discharged in a stable condition with guarded prognosis to home. Patient will follow-up with Dr. Garcia Ca in the outpatient setting upon discharge. Patient is to continue with current medications and outpatient follow-up with cardiology as scheduled. Total time taken is greater than 35 minutes. Hospital course This is a 59-year-old male who was recently admitted with chest pain and given extensive cardiac history, cardiology evaluating recommend catheterization. Patient underwent successful stenting of the OM1 and was evaluated and monitored overnight with no acute changes noted. Patient reports to feeling well and would like to go home. Patient has been cleared by cardiology. Patient to follow-up with cardiology in 1 to 2 weeks outpatient. Please refer to cardiology consultation notes for further HPI. Currently no reports of chest pain, shortness of breath, or palpitations. Patient is afebrile. No reports of nausea or vomiting and patient is tolerating diet. Patient will be discharged home today. Guarded prognosis. Physical exam: Gen: This is a 59-year-old male who is awake, alert and oriented x 3, well- developed, well-nourished, obese HEENT: Head is atraumatic, normocephalic. Pupils equal, round. Sclerae is anicteric. NECK: Supple. No JVD. No lymphadenopathy. No thyromegaly. LUNGS: Diminished breath sounds bilaterally otherwise clear to auscultation. No wheezes or rhonchi. No intercostal retractions. HEART: S1, S2 are muffled ABDOMEN: Soft. Bowel sounds are present. No masses. No tenderness. EXTREMITIES: No pedal edema. No calf tenderness. NEUROLOGICAL: Patient is awake, alert and oriented x3. Cranial nerves 2 through 12 are grossly intact. Please refer to medication reconciliation sheet for a list of medications. The impression and plan of care has been dictated by Karen Fall, Nurse Practitioner as directed. Dr. Roby MD I have performed a history and examination and MDM of this patient, discussed the same with the dictator, and agree with the dictator's assessment and plan as written ,documented as a scribe. Based on total visit time, I have performed more than 50% of the visit. Patient Condition at Discharge: Stable Plan - Discharge Summary Discharge Rx Participant: Yes New Discharge Prescriptions: New Nicotine 14Mg/24Hr Patch [Habitrol] 1 patch TRANSDERM DAILY #30 patch Acetaminophen Tab [Tylenol] 650 mg PO Q6HR PRN tab PRN Reason: Mild Pain Or Fever > 100.5 Continue Fluticasone Propionate 110 Mcg [Flovent 110 Mcg Inhaler] 2 puff INHALATION RT-BID metFORMIN HCL ER [Glucophage XR] 1,000 mg PO BID-W/MEALS Cholecalciferol (Vitamin D3) [Vitamin D3 (50 Mcg = 2000 Iu)] 50 mcg PO DAILY Aspirin 81 mg PO DAILY #30 tab Prasugrel [Effient] 10 mg PO DAILY #30 tab Dapagliflozin Propanediol [Farxiga] 10 mg PO DAILY #30 tab Atorvastatin [Lipitor] 40 mg PO HS #30 tab amLODIPine [Norvasc] 5 mg PO DAILY #30 tab Metoprolol Succinate (ER) [Toprol XL] 50 mg PO DAILY #30 tab Albuterol Inhaler [Ventolin Hfa Inhaler] 2 puff INHALATION RT-Q6H PRN PRN Reason: Shortness Of Breath glipiZIDE [Glucotrol] 10 mg PO AC-BRKFST Insulin Glargine,Hum.rec.anlog [Lantus Solostar Pen] 20 units SQ HS Montelukast [Singulair] 10 mg PO DAILY Dulaglutide [Trulicity] 1.5 mg SQ FR Nitroglycerin Sl Tabs [Nitrostat] 0.4 mg SUBLINGUAL Q5M PRN #20 tab PRN Reason: Chest Pain lisinopriL [Zestril] 2.5 mg PO DAILY #30 tab Discharge Medication List Albuterol Inhaler [Ventolin Hfa Inhaler] 2 puff INHALATION RT-Q6H PRN 05/02/23 [History] Cholecalciferol (Vitamin D3) [Vitamin D3 (50 Mcg = 2000 Iu)] 50 mcg PO DAILY 06/19/24 [History] Dulaglutide [Trulicity] 1.5 mg SQ FR 06/19/24 [History] Fluticasone Propionate 110 Mcg [Flovent 110 Mcg Inhaler] 2 puff INHALATION RT- BID 06/19/24 [History] Insulin Glargine,Hum.rec.anlog [Lantus Solostar Pen] 20 units SQ HS 06/19/24 [History] Montelukast [Singulair] 10 mg PO DAILY 06/19/24 [History] glipiZIDE [Glucotrol] 10 mg PO AC-BRKFST 06/19/24 [History] metFORMIN HCL ER [Glucophage XR] 1,000 mg PO BID-W/MEALS 06/19/24 [History] Aspirin 81 mg PO DAILY #30 tab 06/22/24 [Rx] Atorvastatin [Lipitor] 40 mg PO HS #30 tab 06/22/24 [Rx] Dapagliflozin Propanediol [Farxiga] 10 mg PO DAILY #30 tab 06/22/24 [Rx] Metoprolol Succinate (ER) [Toprol XL] 50 mg PO DAILY #30 tab 06/22/24 [Rx] Nitroglycerin Sl Tabs [Nitrostat] 0.4 mg SUBLINGUAL Q5M PRN #20 tab 06/22/24 [Rx] Prasugrel [Effient] 10 mg PO DAILY #30 tab 06/22/24 [Rx] amLODIPine [Norvasc] 5 mg PO DAILY #30 tab 06/22/24 [Rx] lisinopriL [Zestril] 2.5 mg PO DAILY #30 tab 06/22/24 [Rx] Acetaminophen Tab [Tylenol] 650 mg PO Q6HR PRN tab 07/02/24 [Rx] Nicotine 14Mg/24Hr Patch [Habitrol] 1 patch TRANSDERM DAILY #30 patch 07/02/24 [Rx] Follow up Appointment(s)/Referral(s): Rishi Reaves MD [STAFF PHYSICIAN] - 07/08/24 4:15 pm Rashard Escobar MD [REFERRING] - 1 Week Kamryn Ernandez MD [Primary Care Provider] - 1-2 days Activity/Diet/Wound Care/Special Instructions: Activity limited until follow-up Follow-up with primary care provider on discharge Follow-up with cardiology outpatient Continue heart healthy diabetic diet Continue compliance with insulins and diabetic agents, hemoglobin A1c is uncontrolled above 12 and recommend endocrine outpatient Continue taking medications as prescribed Recommend smoking cessation Discharge Disposition: HOME SELF-CARE
== END 2024-07-02 13:52 | disposition home or self-care (01) | DRG 175 ==
LOC: EC 21:57 → 6NMEDSUR 07-01 01:04 → OBSVTOIN 07-01 01:05 → 6NMEDSUR 07-01 01:35
PROVIDERS: ADMIT Hospitalist; ATTEND Hospitalist
PROC: 027034Z Dilation of Coronary Artery, One Artery with Drug-eluting Intraluminal Device, Percutaneous Approach (ICD-10-PCS; principal; 2024-07-01 13:45)
PROC: 4A033BC Measurement of Arterial Pressure, Coronary, Percutaneous Approach (ICD-10-PCS; 2024-07-01 13:45)
PROC: 02F03ZZ Fragmentation in Coronary Artery, One Artery, Percutaneous Approach (ICD-10-PCS; 2024-07-01 13:45)
PROC: B240ZZ3 Ultrasonography of Single Coronary Artery, Intravascular (ICD-10-PCS; 2024-07-01 13:45)
PROC: 4A023N7 Measurement of Cardiac Sampling and Pressure, Left Heart, Percutaneous Approach (ICD-10-PCS; 2024-07-01 13:45)
DX: I25.118 Atherosclerotic heart disease of native coronary artery with other forms of angina pectoris (principal); I23.7 Postinfarction angina; I21.4 Non-ST elevation (NSTEMI) myocardial infarction; J44.9 Chronic obstructive pulmonary disease, unspecified; E11.9 Type 2 diabetes mellitus without complications; Z79.4 Long term (current) use of insulin; I10 Essential (primary) hypertension; E78.5 Hyperlipidemia, unspecified; F17.210 Nicotine dependence, cigarettes, uncomplicated; Z79.84 Long term (current) use of oral hypoglycemic drugs; Z79.85 Long-term (current) use of injectable non-insulin antidiabetic drugs; Z79.899 Other long term (current) drug therapy; Z79.82 Long term (current) use of aspirin; Z79.02 Long term (current) use of antithrombotics/antiplatelets; Z79.51 Long term (current) use of inhaled steroids; Z82.49 Family history of ischemic heart disease and other diseases of the circulatory system; Z95.5 Presence of coronary angioplasty implant and graft; Z68.39 Body mass index [BMI] 39.0-39.9, adult; E66.9 Obesity, unspecified
CPT/HCPCS: 36415; 71046; 80053; 80061; 82150; 83036; 83690; 83735; 84484; 85025; 85379; 85610; 85730; 92972; 92978; 93005; 93454; 93799; 94640; 96374; 99285

== ENCOUNTER → 2024-10-21 | Outpatient (CLI) | payer OTHER ==
--- NOTE | 2024-10-21 09:44 | US ---
EXAMINATION TYPE: US abdomen limited DATE OF EXAM: 10/21/2024 COMPARISON: NONE CLINICAL INDICATION: Male, 59 years old with history of E78.2 MIXED HYPERLIPIDEMIA R74.8 ABN SERUM F1 0.10; Abnormal labs. No pain. TECHNIQUE: Grayscale and color Doppler imaging of the right upper quadrant was performed. 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 Ec hogenic in appearance. Hypoechoic area seen adjacent to GB suggestive of focal fatty sparing. Gallbladder: No stones or wall thickening Evidence for sonographic Garza's sign: neg CBD: wnl Right Kidney: No hydronephrosis or masses seen The visualized portions the pancreas unremarkable. The liver is moderately enlarged with diffusely hy perechoic appearance. There is a focal region of fatty sparing adjacent to the gallbladder. Gallbladd er is unremarkable without evidence of stones or wall thickening. Negative sonographic Garza sign. C ommon bile duct is within normal limits. Right kidney demonstrates no hydronephrosis, shadowing calcu fahad or solid mass. IMPRESSION: 1. No ultrasound evidence for acute process. 2. Mild hepatomegaly with diffuse fatty infiltration and region of focal fatty sparing adjacent to ga llbladder. [facility], , 10/21/2024 9:42 AM
== END | disposition home or self-care (01) ==
LOC: RADUSWWP 09:02
PROVIDERS: ATTEND Family Medicine
DX: E78.2 Mixed hyperlipidemia (principal); R74.8 Abnormal levels of other serum enzymes; F10.10 Alcohol abuse, uncomplicated; R16.0 Hepatomegaly, not elsewhere classified
CPT/HCPCS: 76705

== ENCOUNTER 2024-10-30 19:44 | Observation (INO) | payer OTHER ==
[2024-10-30 19:59] LABS: Glucose,Whole Blood 172 mg/dL (70-110)
[2024-10-30 20:00] LABS: Basophils # (A) 0.11 10*3/uL (0.00-0.10); Basophils % (A) 1.0 %; Eosinophils # (A) 0.17 10*3/uL (0.04-0.35); Eosinophils % (A) 1.6 %; HCT 42.3 % (39.6-50.0); HGB 14.4 g/dL (13.0-17.0); Lymphocytes # (A) 3.35 10*3/uL (0.90-5.00); Lymphocytes % (A) 31.2 %; MCH 27.4 pg (27.0-32.0); MCHC 34.0 g/dL (32.0-37.0); MCV 80.4 fL (80.0-97.0); Monocytes # (A) 1.05 10*3/uL (0.20-1.00); Monocytes % (A) 9.8 %; Neutrophils # (A) 6.02 10*3/uL (1.80-7.70); Neutrophils % (A) 56.1 %; Platelet Count 277 10*3/uL (140-440); RBC 5.26 10*6/uL (4.40-5.60); RDW 13.9 % (11.5-14.5); WBC 10.73 10*3/uL (4.50-10.00)
[2024-10-30 20:18] LABS: ALT 20 U/L (4-49); AST 23 U/L (17-59); African American GFR (CKD) >90 (>60 ml/min/1.73 sqM); Albumin 4.1 g/dL (3.5-5.0); Alkaline Phosphatase 100 U/L (38-126); Anion Gap 11 mmol/L; Blood Urea Nitrogen 15 mg/dL (9-20); Calcium 9.4 mg/dL (8.4-10.2); Carbon Dioxide 25 mmol/L (22-30); Chloride 105 mmol/L (98-107); Glucose 160 mg/dL (74-99); INR 0.9 (<1.2); Magnesium 1.9 mg/dL (1.6-2.3); Non-African American GFR(CKD) >90 (>60 ml/min/1.73 sqM); Partial Thromboplastin Time 22.9 sec (22.0-30.0); Potassium 3.8 mmol/L (3.5-5.1); Prothrombin Time 10.3 sec (10.0-12.5); Sodium 141 mmol/L (137-145); Total Protein 7.4 g/dL (6.3-8.2)
--- NOTE | 2024-10-30 20:34 | ED ---
Chest Pain HPI - General Chief Complaint: Chest Pain Stated Complaint: Chest pain Time Seen by Provider: 10/30/24 19:45 Source: patient, EMS Mode of arrival: EMS Limitations: no limitations - History of Present Illness Initial Comments: 59-year-old male with history of COPD, CAD with 2 stents placements in June (Dr. Reaves, on prasugrel), diabetes, multilevel cervical spine degenerative disc disease current daily smoker here for evaluation of lightheadedness and chest pain. Patient reported that today he was driving and suddenly had lightheadedness that led him to stop at the side of the road. He then reported to have chest pressure that was midsternal nonradiating intensity of 4 out of 10. The lightheadedness and chest pain was persistent which led him to seek care in [facility] today. He was cleared for discharged today on aspirin, atorvastatin and insulin Lantus. At home, he went to his car to try to smoke and he suddenly had lightheadedness that was persistent and began to have chest pressure again the same characteristic. He took a nitro and aspirin which helped his chest pain improved. His dizziness and chest pain persisted which led him to call EMS to our facility. Also reported that he has been having slight shortness of breath. He says his neck pain causes pain to radiate into his arm and chest whenever it occurs and he has been trying to get surgery for it. Denied fever, chills, nausea, vomiting, diaphoresis, extremity swelling, focal weakness. - Related Data Home Medications Medication Instructions Recorded Confirmed Albuterol Inhaler [Ventolin Hfa 2 puff INHALATION RT-Q6H PRN 05/02/23 07/01/24 Inhaler] Cholecalciferol (Vitamin D3) 50 mcg PO DAILY 06/19/24 07/01/24 [Vitamin D3 (50 Mcg = 2000 Iu)] Dulaglutide [Trulicity] 1.5 mg SQ FR 06/19/24 07/01/24 Fluticasone Propionate 110 Mcg 2 puff INHALATION RT-BID 06/19/24 07/01/24 [Flovent 110 Mcg Inhaler] Insulin Glargine,Hum.rec.anlog 20 units SQ HS 06/19/24 07/01/24 [Lantus Solostar Pen] Montelukast [Singulair] 10 mg PO DAILY 06/19/24 07/01/24 glipiZIDE [Glucotrol] 10 mg PO AC-BRKFST 06/19/24 07/01/24 metFORMIN HCL ER [Glucophage XR] 1,000 mg PO BID-W/MEALS 06/19/24 07/01/24 Previous Rx's Medication Instructions Recorded Aspirin 81 mg PO DAILY #30 tab 06/22/24 Atorvastatin [Lipitor] 40 mg PO HS #30 tab 06/22/24 Dapagliflozin Propanediol [Farxiga] 10 mg PO DAILY #30 tab 06/22/24 Metoprolol Succinate (ER) [Toprol 50 mg PO DAILY #30 tab 06/22/24 XL] Nitroglycerin Sl Tabs [Nitrostat] 0.4 mg SUBLINGUAL Q5M PRN #20 tab 06/22/24 Prasugrel [Effient] 10 mg PO DAILY #30 tab 06/22/24 amLODIPine [Norvasc] 5 mg PO DAILY #30 tab 06/22/24 lisinopriL [Zestril] 2.5 mg PO DAILY #30 tab 06/22/24 Acetaminophen Tab [Tylenol] 650 mg PO Q6HR PRN tab 07/02/24 Nicotine 14Mg/24Hr Patch [Habitrol] 1 patch TRANSDERM DAILY #30 patch 07/02/24 Allergies Allergy/AdvReac Type Severity Reaction Status Date / Time ibuprofen AdvReac Nausea Verified 10/30/24 19:50 Review of Systems ROS Statement: Those systems with pertinent positive or pertinent negative responses have been documented in the HPI. ROS Other: All systems not noted in ROS Statement are negative. EKG Findings - EKG Comments: EKG Findings:: Sinus rhythm with a rate of 83 bpm, IA interval 179 MS, normal axis, QRS duration 90 MS, QTc 395 MS, no ST-T changes Past Medical History Past Medical History: COPD, Diabetes Mellitus, Hyperlipidemia, Hypertension Additional Past Medical History / Comment(s): gout History of Any Multi-Drug Resistant Organisms: None Reported Past Surgical History: Heart Catheterization With Stent, Orthopedic Surgery Additional Past Surgical History / Comment(s): ORIF LT ANKLE. KNEE CAP REPLACED BILAT. BILAT EYES COSMETIC SX Past Anesthesia/Blood Transfusion Reactions: No Reported Reaction Date of Last Stent Placement:: 06-19-24 Past Psychological History: No Psychological Hx Reported Smoking Status: Current every day smoker Past Alcohol Use History: Occasional Past Drug Use History: Marijuana - Past Family History Mother Family Medical History: Cancer Additional Family Medical History / Comment(s): lung cancer Father Family Medical History: Myocardial Infarction ([place]) General Exam - General Exam Comments Initial Comments: Physical examination: Vital signs reviewed General: non toxic, no distress, appears at stated age Head: atraumatic, normocephalic, symmetric Eyes: EOMI, anicteric, PERLLA Mouth: no lip lesion, mucus membranes moist Cardiovascular: S1S2 reg, no murmur Lungs: CTA bilateral, no rhonchi, no rales, no accessory muscle use Abdominal: soft, nondistended, nontender to palpation, no guarding Ext: muscle strength 5 out of 5 in all 4 extremities grossly, no gross muscle atrophy, no contractures, positive dorsalis pedis pulse bilateral, no edema Neuro: no gross focal neuro deficits, CN I through XII intact grossly, [id number] and [id number] testing normal Psych: Alert and oriented x3, appropriate affect and mood Limitations: no limitations Course Vital Signs 10/30/24 10/30/24 19:44 21:36 Temperature 97.9 F 97.9 F Pulse Rate 84 76 Respiratory 18 16 Rate Blood Pressure 133/100 141/92 O2 Sat by Pulse 97 98 Oximetry Chest Pain MDM - MDM Was pt. sent in by a medical professional or institution ([facility], [facility], urgent care, hospital, or [facility]...) When possible be specific @ -No Did you speak to anyone other than the patient for history (EMS, parent, family, police, friend...)? What history was obtained from this source @ -Partner at bedside Did you review nursing and triage notes (agree or disagree)? Why? @ -I reviewed and agree with nursing and triage notes Were old charts reviewed (outside hosp., previous admission, EMS record, old EKG, old radiological studies, urgent care reports/EKG's, [facility] records)? Report findings @ -Old charts were reviewed. Patient had cardiac stents placed in June 2024 Differential Diagnosis? @ -Differential Chest Pain: Stable Angina, Unstable Angina, STEMI, NSTEMI Aortic Dissection, Pneumothorax, Musculoskeletal, Esophageal Spasm GERD, Cholecystitis, Pancreatitis, Zoster, this is not meant to be an all-inclusive list. Differential lightheadedness: Benign paroxysmal positional Vertigo, Meniere's disease, otitis media, acoustic neuroma, vertebrobasilar insufficiency, cerebellar stroke, encephalitis, hypovolemic, arrhythmia, coronary artery syndrome, anemia, this is not meant to be an all-inclusive list EKG interpreted by me (3pts min.). @ -As above X-rays interpreted by me (1pt min.). @ -None done CT interpreted by me (1pt min.). @ -None done U/S interpreted by me (1pt. min.). @ -None done What testing was considered but not performed or refused? (CT, X-rays, U/S, labs)? Why? @ -None What meds were considered but not given or refused? Why? @ -None Did you discuss the management of the patient with other professionals (professionals i.e. , PA, [facility], lab, RT, psych nurse, social service director, backend python developer, teacher, highway patrol officer, case mgr)? Give summary @ -Dr. Ramirez, supervising physician Was smoking cessation discussed for >3mins.? @ -No Was critical care preformed (if so, how long)? @ -No Were there social determinants of health that impacted care today? How? (Homelessness, low income, unemployed, alcoholism, drug addiction, transporta tion, low edu. Level, literacy, decrease access to med. care, intermediate, rehab)? @ -No Was there de-escalation of care discussed even if they declined (Discuss DNR or withdrawal of care, Hospice)? DNR status @ -No What co-morbidities impacted this encounter? (DM, HTN, Smoking, COPD, CAD, Cancer, CVA, ARF, Chemo, Hep., AIDS, mental health diagnosis, sleep apnea, morbid obesity)? @ -DM, COPD Was patient admitted / discharged? Hospital course, mention meds given and route, prescriptions, significant lab abnormalities, going to OR and other pertinent info. @ -Admission. EKG, troponins ordered. Patient complaining of lightheadedness and CT brain without contrast ordered. Due to patient's persistent chest pain and significant cardiac history, patient will be admitted for observation overnight. Cardiology consulted for the morning. Spoke with Jennifer HASSAN from [facility] who accepted this admission. Undiagnosed new problem with uncertain prognosis? @ -[No] Drug Therapy requiring intensive monitoring for toxicity (Heparin, Nitro, Insulin, Cardizem)? @ -No Were any procedures done? @ -No Diagnosis/symptom? @ -Chest pain, rule out ACS, persistent dizziness Acute, or Chronic, or Acute on Chronic? @ -Acute Uncomplicated (without systemic symptoms) or Complicated (systemic symptoms)? @ -[default] Side effects of treatment? @ -No Exacerbation, Progression, or Severe Exacerbation? @ -No Poses a threat to life or bodily function? How? (Chest pain, [place], [place], pneumonia, PE, COPD, DKA, ARF, appy, cholecystitis, CVA, Diverticulitis, Homicidal, Suicidal, threat to staff... and all critical care pts) @ -Yes Signed out case to Dr. Daniel at end of my shift at 9 PM. - Wells Criteria Clinical Symptoms of DVT: (0) No No Alternative Diagnosis: (0) No Immobilization of Surgery in Previous 4 Weeks: (0) No Previous DVT/PE: (0) No Hemoptysis: (0) No Malignancy: (0) No - JIL Score Age > 65: (0) No Known CAD with more than 50% Stenosis: (1) Yes Aspirin use within the Past 7 Days: (1) Yes ST Deviation Greater than 0.5mm: (0) No Disposition Clinical Impression: Chest pain Disposition: ADMITTED IP TO THIS [facility] Condition: Serious Time of Disposition: 21:11
[2024-10-30] MEDS ORDERED: NALOXONE 0.4 MG/ML 1 ML VIAL IV PRN (20:56)
[2024-10-30] MEDS ORDERED: DEXTROSE 50% SYRINGE 50 ML IVP PRN ×2 (21:02)
[2024-10-30] MEDS ORDERED: NITROGLYCERIN SL TABS 0.4 MG TAB SUBLINGUAL PRN (21:02)
--- NOTE | 2024-10-30 21:25 | CT ---
EXAMINATION TYPE: CT brain wo con DATE OF EXAM: 10/30/2024 9:13 PM COMPARISON: None. CLINICAL INDICATION: Male, 59 years old with history of persistent dizziness; chest pain, Pt. c/o [place] [facility] pain with SOB. Pt. discharged today from another facility for same issue. TECHNIQUE: Brain: Axial CT images of the brain were obtained with coronal and sagittal reformats created and rev iewed. Contrast used: None. Oral contrast used: None. CT DLP: 1125.4 mGycm, Automated exposure control for dose reduction was used. FINDINGS: Brain: Extra-axial spaces: No abnormal extra-axial fluid collections. Ventricular system: Within normal limits Cerebral parenchyma: No acute intraparenchymal hemorrhage or mass effect. The ramirez-white junction is well differentiated. Cerebellum: Unremarkable. Mass effect: No evidence of midline shift. Intracranial vasculature: unremarkable Soft tissues: Normal. Calvarium/osseous structures: No depressed skull fracture. Paranasal sinuses and mastoid air cells: Mild scattered paranasal sinus disease. Visualized orbits: Orbital contents are intact. IMPRESSION: No acute intracranial process. [facility], , 10/30/2024 9:23 PM
[2024-10-30] MEDS ORDERED: IPRATROPIUM-ALBUTEROL 3 ML NEB INHALATION PRN (21:50)
[2024-10-30] MEDS: INSULIN GLARGINE (LANTUS) 100 UNIT/ML SYR SQ ONE (22:11)
[2024-10-30] MEDS: ACETAMINOPHEN TAB 325 MG TAB PO PRN (23:10)
[2024-10-31 05:53] LABS: Glucose,Whole Blood 114 mg/dL (70-110)
[2024-10-31] MEDS: INSULIN LISPRO (HumaLOG) 100 UNIT/ML 10 mL VL SQ SCH (06:36)
[2024-10-31 08:57] LABS: Basophils # (A) 0.11 X 10*3/uL (0.00-0.10); Basophils % (A) 1.0 %; Eosinophils # (A) 0.19 X 10*3/uL (0.04-0.35); Eosinophils % (A) 1.7 %; HCT 42.9 % (39.6-50.0); HGB 13.8 g/dL (13.0-17.0); Immature Grans, Automated 0.40 %; Lymphocytes # (A) 3.64 X 10*3/uL (0.90-5.00); Lymphocytes % (A) 32.9 %; MCH 26.7 pg (27.0-32.0); MCHC 32.2 g/dL (32.0-37.0); MCV 83.0 FL (80.0-97.0); Monocytes # (A) 1.20 X 10*3/uL (0.20-1.00); Monocytes % (A) 10.8 %; NRBC Per 100 WBC 0 X 10*3/uL (0.00-0.01); Neutrophils # (A) 5.88 X 10*3/uL (1.80-7.70); Neutrophils % (A) 53.2 %; Platelet Count 294 X 10*3/uL (140-440); RBC 5.17 X 10*6/uL (4.40-5.60); RDW 14.5 % (11.5-14.5); WBC 11.06 X 10*3/uL (4.50-10.00)
[2024-10-31 09:02] LABS: ALT 20 U/L (10-49); AST 20 U/L (14-35); Albumin 3.9 g/dL (3.8-4.9); Albumin/Globulin Ratio 1.22 Ratio (1.60-3.17); Alkaline Phosphatase 77 U/L (41-126); Anion Gap 10.90 mmol/L (4.00-12.00); BUN/Creat Ratio 17.12 Ratio (12.00-20.00); Blood Urea Nitrogen 13.7 mg/dL (9.0-27.0); Calcium 9.3 mg/dL (8.7-10.3); Carbon Dioxide 25.1 mmol/L (21.6-31.8); Chloride 103 mmol/L (96-109); Globulin 3.2 g/dL (1.6-3.3); Glucose 110 mg/dL (70-110); Potassium 4.1 mmol/L (3.5-5.5); Sodium 139 mmol/L (135-145); Total Protein 7.1 g/dL (6.2-8.2)
[2024-10-31] MEDS: DAPAGLIFLOZIN PROPANEDIOL 10 MG TABLET PO SCH (09:09)
[2024-10-31] MEDS: PRASUGREL 10 MG TAB PO SCH (09:09)
[2024-10-31] MEDS: amLODIPine 5 MG TAB PO SCH (09:09)
[2024-10-31] MEDS: METOPROLOL SUCCINATE (ER) 50 MG TAB.ER.24H PO SCH (09:09)
[2024-10-31] MEDS: ASPIRIN 81 MG PO SCH (09:09)
--- NOTE | 2024-10-31 11:55 | P.CRDCN ---
History of Present Illness Consult date: 10/31/24 Requesting physician: Paulino Coelho Reason for Consult (text): persistent chest pain, lightheadness Chief complaint: dizziness, neck, shoulder and chest pain History of present illness: This is a pleasant 59-year-old male patient of Dr. Reaves with past medical history of CAD status post stenting of the LAD and OM1 in June of this year, diabetes, hypertension, hyperlipidemia, smoking, and noncompliance. He initially presented to [facility] yesterday with complaints of di zziness and cramping in his chest apparently workup was unremarkable and he was discharged home.. Presented to the hospital with complaints primarily of dizziness. After his return from [facility] he went outside to smoke and sat back in his chair and became quite dizzy, short of breath developed some neck pain that radiated into her shoulders and chest. He did take nitroglycerin which he feels helped somewhat but he felt near syncopal and called EMS to come here. He has been having ongoing issues with neck pain apparently needs surgery and gets pain that radiates to his shoulders and chest. The pain prior to his PCI's was primarily in his chest without neck or shoulder involvement therefore this pain is little different. He has persistent dizziness and lightheadedness. He is a current every day smoker. He was seen in the office recently on the of this month and at that time had not been taking his prasugrel and this was resumed at that visit. Diagnostics -EKG: Sinus mechanism nonspecific T wave abnormalities, no acute ischemia essentially unchanged from previous -Brain CT: No acute intracranial process -Laboratory studies: White blood cell count 10.73, hemoglobin 14.4, sodium 141, potassium 3.8, BUN 15, creatinine 0.88, troponins negative x 3 -Home cardiac medications: Lisinopril 2.5 mg p.o. daily, amlodipine 5 mg p.o. daily, prasugrel 10 mg p.o. daily, metoprolol succinate 50 mg p.o. daily, Farxiga 10 mg p.o. daily, aspirin 81 mg p.o. daily and atorvastatin 80 mg p.o. daily. -Echocardiogram: 06/22/2024: Normal ejection fraction -Cardiac catheterization: 07/01/2024 patent stent in the mid LAD, intermediate disease involving the distal LAD with negative IFR, severe disease involving the OM1 and at that time patient subsequently underwent PCI of the OM1. Review Of Systems: At the time of my exam: CONSTITUTIONAL: Denies fever or chills. HEENT: Denies blurred vision, vision changes. CARDIOVASCULAR: + Neck, shoulder, and chest pain. Denies orthopnea. Denies PND. Denies palpitations or syncope. + dizziness RESPIRATORY: Denies shortness of breath, wheezing, or cough. Denies hemoptysis. GASTROINTESTINAL: Denies abdominal pain. Denies nausea or vomiting. Denies bleeding. HEMATOLOGIC: Denies bleeding disorders. GENITOURINARY: Denies hematuria. SKIN: Denies puritis. Denies rash. PHYSICAL EXAMINATION: This is a 59-year-old -[place] gentleman in no apparent distress at the time of my examination. VITAL SIGNS: Reviewed. HEENT: Head is atraumatic, normocephalic. Pupils are equal, round. Sclerae anicteric. Conjunctivae are clear. Mucous membranes of the mouth are moist. Neck is supple. There is no elevated jugular venous pressure. No carotid bruit is heard. CHEST EXAMINATION: Clear to auscultation bilaterally. No wheezes rales or rhonchi. Respirations even and nonlabored. HEART EXAMINATION: Heart regular, positive S1 and S2. No S3. No S4. Systolic murmur. ABDOMEN: Soft, nontender. Bowel sounds are heard. No organomegaly noted. EXTREMITIES: 2+ peripheral pulses with no evidence of peripheral edema and no calf tenderness noted. NEUROLOGIC EXAMINATION: Patient is awake, alert and oriented x3. Assessment: 1. Dizziness with neck, shoulder and chest discomfort, acute coronary event has been ruled out 2. CAD with prior stenting of the LAD and OM1 3. Noncompliance 4. Nicotine dependence Plan: From cardiology's perspective resume home medications. Reinforced importance of medication compliance with the patient and he verbalized understanding. Discomfort and dizziness likely related to cervical spine issues. Discussed importance of smoking cessation. From our perspective patient may be discharged home. He will follow-up in the office with Dr. Reaves. Thank you kindly for this consultation. Nurse practitioner note has been reviewed, I agree with documented findings and plan of care. Patient was seen and examined. Past Medical History Past Medical History: COPD, Diabetes Mellitus, Hyperlipidemia, Hypertension Additional Past Medical History / Comment(s): gout History of Any Multi-Drug Resistant Organisms: None Reported Past Surgical History: Heart Catheterization With Stent, Orthopedic Surgery Additional Past Surgical History / Comment(s): ORIF LT ANKLE. KNEE CAP REPLACED BILAT. BILAT EYES COSMETIC SX Past Anesthesia/Blood Transfusion Reactions: No Reported Reaction Date of Last Stent Placement:: 06-19-24 Past Psychological History: No Psychological Hx Reported Smoking Status: Current every day smoker Past Alcohol Use History: Occasional Past Drug Use History: Marijuana - Past Family History Mother Family Medical History: Cancer Additional Family Medical History / Comment(s): lung cancer Father Family Medical History: Myocardial Infarction ([place]) Medications and Allergies Home Medications Medication Instructions Recorded Confirmed Type Cholecalciferol (Vitamin D3) 50 mcg PO DAILY 06/19/24 10/31/24 History [Vitamin D3 (50 Mcg = 2000 Iu)] Insulin Glargine,Hum.rec.anlog 30 units SQ HS 06/19/24 10/31/24 History [Lantus Solostar Pen] Montelukast [Singulair] 10 mg PO HS 06/19/24 10/31/24 History glipiZIDE [Glucotrol] 10 mg PO AC-BRKFST 06/19/24 10/31/24 History metFORMIN HCL ER [Glucophage XR] 1,000 mg PO BID-W/MEALS 06/19/24 10/31/24 History Dapagliflozin Propanediol [Farxiga] 10 mg PO DAILY #30 tab 06/22/24 10/31/24 Rx Metoprolol Succinate (ER) [Toprol 50 mg PO DAILY #30 tab 06/22/24 10/31/24 Rx XL] Nitroglycerin Sl Tabs [Nitrostat] 0.4 mg SUBLINGUAL Q5M PRN #20 tab 06/22/24 10/31/24 Rx Prasugrel [Effient] 10 mg PO DAILY #30 tab 06/22/24 10/31/24 Rx amLODIPine [Norvasc] 5 mg PO DAILY #30 tab 06/22/24 10/31/24 Rx lisinopriL [Zestril] 2.5 mg PO DAILY #30 tab 06/22/24 10/31/24 Rx Aspirin EC [Ecotrin Low Dose] 81 mg PO DAILY 10/31/24 10/31/24 History Atorvastatin [Lipitor] 80 mg PO DAILY 10/31/24 10/31/24 History Cetirizine HCl 10 mg PO DAILY 10/31/24 10/31/24 History Dulaglutide [Trulicity] 3 mg SQ TU 10/31/24 10/31/24 History Allergies Allergy/AdvReac Type Severity Reaction Status Date / Time ibuprofen AdvReac Nausea Verified 10/31/24 10:21 Physical Exam Vitals: Vital Signs Temp Pulse Pulse Pulse Pulse Pulse Resp 10/31/24 09:24 84 93 82 10/31/24 07:00 98.1 F 72 15 10/31/24 02:40 78 15 10/31/24 02:31 98.0 F 74 17 10/31/24 01:59 98.6 F 79 16 10/30/24 21:36 97.9 F 76 16 10/30/24 19:44 97.9 F 84 18 BP BP BP BP BP Pulse Ox 10/31/24 09:24 133/94 132/89 147/96 10/31/24 07:00 136/81 99 10/31/24 02:40 10/31/24 02:31 103/70 96 10/31/24 01:59 127/82 98 10/30/24 21:36 141/92 98 10/30/24 19:44 133/100 97 Intake and Output 10/30/24 10/31/24 10/31/24 22:59 06:59 14:59 Other: # Voids 2 Weight 114.759 kg Results 10/31/24 04:58 10/31/24 04:58 Cardiac Enzymes 10/30/24 10/30/24 10/31/24 Range/Units 19:50 19:50 04:58 AST 23 20 (17-59) U/L Troponin I <0.012 (0.000-0.034) ng/mL 10/31/24 10/31/24 Range/Units 07:56 09:21 AST (17-59) U/L Troponin I <0.012 <0.012 (0.000-0.034) ng/mL Coagulation 10/30/24 Range/Units 19:50 PT 10.3 (10.0-12.5) sec APTT 22.9 (22.0-30.0) sec CBC 10/30/24 10/31/24 Range/Units 19:50 04:58 WBC 10.73 H 11.06 H (4.50-10.00) 10*3/uL RBC 5.26 5.17 (4.40-5.60) 10*6/uL Hgb 14.4 13.8 (13.0-17.0) g/dL Hct 42.3 42.9 (39.6-50.0) % Plt Count 277 294 (140-440) 10*3/uL Comprehensive Metabolic Panel 10/30/24 10/31/24 Range/Units 19:50 04:58 Sodium 141 139 (137-145) mmol/L Potassium 3.8 4.1 (3.5-5.1) mmol/L Chloride 105 103 (98-107) mmol/L Carbon Dioxide 25 25.1 (22-30) mmol/L BUN 15 13.7 (9-20) mg/dL Creatinine 0.88 0.8 (0.66-1.25) mg/dL Glucose 160 H 110 (74-99) mg/dL Calcium 9.4 9.3 (8.4-10.2) mg/dL AST 23 20 (17-59) U/L ALT 20 20 (4-49) U/L Alkaline Phosphatase 100 77 (38-126) U/L Total Protein 7.4 7.1 (6.3-8.2) g/dL Albumin 4.1 3.9 (3.5-5.0) g/dL Current Medications Generic Name Dose Route Start Last Admin Trade Name Freq PRN Reason Stop Dose Admin Acetaminophen 650 mg 10/30/24 20:59 10/30/24 23:10 Acetaminophen Tab 325 Mg Tab PO 650 mg Q6HR PRN Administration Mild Pain or Fever > 100.5 Albuterol/Ipratropium 3 ml 10/30/24 21:50 Ipratropium-Albuterol 3 Ml Neb INHALATION RT-Q2H PRN Shortness Of Breath Or Wheezing Amlodipine Besylate 5 mg 10/31/24 09:00 10/31/24 09:09 Amlodipine 5 Mg Tab PO 5 mg DAILY MARTA Administration Aspirin 81 mg 10/31/24 09:00 10/31/24 09:09 Aspirin 81 Mg PO 81 mg DAILY MARTA Administration Atorvastatin Calcium 40 mg 10/31/24 21:00 Atorvastatin 40 Mg Tab PO HS MARTA Dapagliflozin 10 mg 10/31/24 09:00 10/31/24 09:09 Dapagliflozin Propanediol 10 Mg Tablet PO 10 mg DAILY MARTA Administration Dextrose/Water 25 ml 10/30/24 21:02 Dextrose 50% Syringe 50 Ml IVP PER PROTOCOL PRN Hypoglycemia Protocol Dextrose/Water 50 ml 10/30/24 21:02 Dextrose 50% Syringe 50 Ml IVP PER PROTOCOL PRN Hypoglycemia Protocol Insulin Glargine 20 unit 10/31/24 21:00 Insulin Glargine (Lantus) 100 Unit/Ml Syr SQ HS [facility] Insulin Human Lispro 0 unit 10/31/24 07:30 10/31/24 06:36 Insulin Lispro (Humalog) 100 Unit/Ml 10 Ml Vl SQ Not Given ACHS [facility] Protocol Lisinopril 2.5 mg 10/31/24 09:00 10/31/24 09:10 Lisinopril 2.5 Mg Tab PO 2.5 mg DAILY MARTA Administration Metoprolol Succinate 50 mg 10/31/24 09:00 10/31/24 09:09 Metoprolol Succinate (Er) 50 Mg Tab.Er.24h PO 50 mg DAILY MARTA Administration Naloxone HCl 0.2 mg 10/30/24 20:56 Naloxone 0.4 Mg/Ml 1 Ml Vial IV Q2M PRN Opioid Reversal Nitroglycerin 0.4 mg 10/30/24 21:02 Nitroglycerin Sl Tabs 0.4 Mg Tab SUBLINGUAL Q5M PRN Chest Pain Prasugrel 10 mg 10/31/24 09:00 10/31/24 09:09 Prasugrel 10 Mg Tab PO 10 mg DAILY MARTA Administration Intake and Output 10/30/24 10/31/24 10/31/24 22:59 06:59 14:59 Other: # Voids 2 Weight 114.759 kg 10/31/24 04:58 10/31/24 04:58
[2024-10-31 12:46] LABS: Glucose,Whole Blood 133 mg/dL (70-110)
[2024-10-31] MEDS ORDERED: MECLIZINE 25 MG TAB PO PRN (12:54)
[2024-10-31] MEDS: MECLIZINE 25 MG TAB PO STA (13:56)
--- NOTE | 2024-10-31 15:30 | P.HPIM ---
History of Present Illness H&P Date: 10/31/24 This is a 59-year-old male who presented to the emergency department with chest pain and dizziness. Patient follows with Dr. Garcia Ca in the outpatient setting with a past medical history of diabetes, COPD, hyperlipidemia, hypertension, obesity, continued nicotine dependence, marijuana use, no ncompliance with outpatient follow-up. Patient reports he attempted to go to pharmacy and get his refills although there are no refills available and he assumed he did not need to continue taking these medications. Patient was just at [facility] and discharged or left AMA and came here for continued lightheadedness and dizziness. Patient has been noncompliant with medications including insulins and diabetes management. Patient reports he did take an aspirin and nitro which improved his chest pain after leaving [facility] although continued with dizziness and lightheadedness and called 911 for EMS transport here. Patient does have chronic pain in the neck that radiates into his arms but has yet to follow-up with orthopedics outpatient. Labs reviewed reveal a white count of 11.06, hemoglobin 13.8, platelets 294, sodium 139, potassium 4.1, BUN 13.7, creatinine 0.8, troponin has been negative and LFTs within normal limits. EKG shows sinus rhythm with a heart rate of 83 bpm, CT brain was done due to the persistent dizziness showing no acute intracranial process. Patient was admitted with cardiology on consultation for chest pain and persistent dizziness. REVIEW OF SYSTEMS: CONSTITUTIONAL: No fever, no malaise, no fatigue. HEENT: No recent visual problems or hearing problems. Denied any sore throat. CARDIOVASCULAR: Reports of chest pain that has resolved, orthopnea, PND, no palpitations, no syncope. PULMONARY: No shortness of breath, no cough, no hemoptysis. GASTROINTESTINAL: No diarrhea, no nausea, no vomiting, no abdominal pain. NEUROLOGICAL: No headaches, reports generalized weakness with lightheadedness and dizziness on occasion, no numbness. HEMATOLOGICAL: Denies any bleeding or petechiae. GENITOURINARY: Denies any burning micturition, frequency, or urgency. MUSCULOSKELETAL/RHEUMATOLOGICAL: Denies any joint pain, swelling, or any muscle pain. ENDOCRINE: Denies any polyuria or polydipsia. The rest of the 14-point review of systems is negative. PHYSICAL EXAMINATION: GENERAL: The patient is alert and oriented x3, not in any acute distress. Well developed, well nourished. Appears older than stated age, obese HEENT: Pupils are round and equally reacting to light. EOMI. No scleral icterus. No conjunctival pallor. Normocephalic, atraumatic. No pharyngeal erythema. No thyromegaly. CARDIOVASCULAR: S1 and S2 muffled PULMONARY: Diminished breath sounds bilaterally otherwise chest is clear to auscultation, no wheezing or crackles. ABDOMEN: Soft, obese nontender, nondistended, normoactive bowel sounds. No palpable organomegaly. MUSCULOSKELETAL: No joint swelling or deformity. EXTREMITIES: No cyanosis, clubbing, or pedal edema. NEUROLOGICAL: Gross neurological examination did not reveal any focal deficits. SKIN: No rashes. Assessment: Chest pain, ruled out ACS, likely musculoskeletal with neck, shoulder, chest wall pain on admission, troponins negative Obesity with a BMI of 39.6 Dizziness and lightheadedness, possible vertigo versus chronic neck and back pain, recommend outpatient follow-up with orthopedic spine Degenerative disc disease multilevel with multilevel central stenosis and foraminal encroachment, has failed to follow-up with orthopedics as referred by pain management outpatient History of recent coronary artery disease with stenting to the LAD and OM1 in June of this year with Dr. Reaves History of diabetes mellitus uncontrolled with hyper and hypoglycemia Hyperlipidemia history Hypertension history History of COPD, not in exacerbation Continued ongoing nicotine dependence Marijuana use Noncompliance with outpatient follow-up and medications GI prophylaxis DVT prophylaxis Full code Plan: Patient was admitted under observation with cardiology evaluation for chest pain with continued lightheadedness and dizziness. Apparently patient was either discharged or left AGAINST MEDICAL ADVICE earlier last night from [facility] and came here after getting to his car and continuing to feel dizzy and lightheaded and called 911 for EMS transport here Patient has been evaluated by cardiology with no surgical interventions planned and has been cleared for outpatient follow-up. Home medications reviewed and resumed as appropriate Patient reports he was going to the pharmacy to parts picker his refills for his medications including diabetic medications and there were no refills available and he assumed he was done taking these medications. Patient appears to be noncompliant and has not followed up with primary care provider in quite some time Encouraged increase activity as tolerated and will add meclizine 25 mg 3 times daily Recommend outpatient follow-up with orthopedics regarding his chronic neck and back pain. Patient encouraged to follow-up with pain management in the outpatient setting and will also refer to Dr. Andino as he was previously referred. Will be monitored overnight for continued dizziness and lightheadedness with possible discharge planning in 24 hours Due to multiple complex medical issues and noncompliance with medication and follow-up, overall prognosis is guarded The impression and plan of care has been dictated by Karen Fall Nurse Prac titioner as directed. Dr. Eulalia MD I have performed a history and examination and MDM of this patient, discussed the same with the dictator, and agree with the dictator's assessment and plan as written ,documented as a scribe. Based on total visit time, I have performed more than 50% of the visit. Past Medical History Past Medical History: COPD, Diabetes Mellitus, Hyperlipidemia, Hypertension Additional Past Medical History / Comment(s): gout History of Any Multi-Drug Resistant Organisms: None Reported Past Surgical History: Heart Catheterization With Stent, Orthopedic Surgery Additional Past Surgical History / Comment(s): ORIF LT ANKLE. KNEE CAP REPLACED BILAT. BILAT EYES COSMETIC SX Past Anesthesia/Blood Transfusion Reactions: No Reported Reaction Date of Last Stent Placement:: 06-19-24 Past Psychological History: No Psychological Hx Reported Smoking Status: Current every day smoker Past Alcohol Use History: Occasional Past Drug Use History: Marijuana - Past Family History Mother Family Medical History: Cancer Additional Family Medical History / Comment(s): lung cancer Father Family Medical History: Myocardial Infarction ([place]) Medications and Allergies Home Medications Medication Instructions Recorded Confirmed Type Cholecalciferol (Vitamin D3) 50 mcg PO DAILY 06/19/24 10/31/24 History [Vitamin D3 (50 Mcg = 2000 Iu)] Insulin Glargine,Hum.rec.anlog 30 units SQ HS 06/19/24 10/31/24 History [Lantus Solostar Pen] Montelukast [Singulair] 10 mg PO HS 06/19/24 10/31/24 History glipiZIDE [Glucotrol] 10 mg PO AC-BRKFST 06/19/24 10/31/24 History metFORMIN HCL ER [Glucophage XR] 1,000 mg PO BID-W/MEALS 06/19/24 10/31/24 History Dapagliflozin Propanediol [Farxiga] 10 mg PO DAILY #30 tab 06/22/24 10/31/24 Rx Metoprolol Succinate (ER) [Toprol 50 mg PO DAILY #30 tab 06/22/24 10/31/24 Rx XL] Nitroglycerin Sl Tabs [Nitrostat] 0.4 mg SUBLINGUAL Q5M PRN #20 tab 06/22/24 10/31/24 Rx Prasugrel [Effient] 10 mg PO DAILY #30 tab 06/22/24 10/31/24 Rx amLODIPine [Norvasc] 5 mg PO DAILY #30 tab 06/22/24 10/31/24 Rx lisinopriL [Zestril] 2.5 mg PO DAILY #30 tab 06/22/24 10/31/24 Rx Aspirin EC [Ecotrin Low Dose] 81 mg PO DAILY 10/31/24 10/31/24 History Atorvastatin [Lipitor] 80 mg PO DAILY 10/31/24 10/31/24 History Cetirizine HCl 10 mg PO DAILY 10/31/24 10/31/24 History Dulaglutide [Trulicity] 3 mg SQ TU 10/31/24 10/31/24 History Allergies Allergy/AdvReac Type Severity Reaction Status Date / Time ibuprofen AdvReac Nausea Verified 10/31/24 10:21 Physical Exam Vitals: Vital Signs Temp Pulse Pulse Pulse Pulse Pulse Resp 10/31/24 09:24 84 93 82 10/31/24 07:00 98.1 F 72 15 10/31/24 02:40 78 15 10/31/24 02:31 98.0 F 74 17 10/31/24 01:59 98.6 F 79 16 10/30/24 21:36 97.9 F 76 16 10/30/24 19:44 97.9 F 84 18 BP BP BP BP BP Pulse Ox 10/31/24 09:24 133/94 132/89 147/96 10/31/24 07:00 136/81 99 10/31/24 02:40 10/31/24 02:31 103/70 96 10/31/24 01:59 127/82 98 10/30/24 21:36 141/92 98 10/30/24 19:44 133/100 97 Intake and Output 10/30/24 10/31/24 10/31/24 22:59 06:59 14:59 Other: # Voids 2 Weight 114.759 kg Results CBC & Chem 7: 10/31/24 04:58 10/31/24 04:58 Labs: Abnormal Lab Results - Last 24 Hours (Table) 10/30/24 10/30/24 10/30/24 Range/Units 19:50 19:50 19:58 WBC 10.73 H (4.50-10.00) 10*3/uL MCH (27.0-32.0) pg Monocytes # 1.05 H (0.20-1.00) 10*3/uL Basophils # 0.11 H (0.00-0.10) 10*3/uL Glucose 160 H (74-99) mg/dL POC Glucose (mg/dL) 172 H (70-110) mg/dL Albumin/Globulin Ratio (1.60-3.17) Ratio 10/31/24 10/31/24 10/31/24 Range/Units 04:58 04:58 05:52 WBC 11.06 H (4.50-10.00) 10*3/uL MCH 26.7 L (27.0-32.0) pg Monocytes # 1.20 H (0.20-1.00) 10*3/uL Basophils # 0.11 H (0.00-0.10) 10*3/uL Glucose (74-99) mg/dL POC Glucose (mg/dL) 114 H (70-110) mg/dL Albumin/Globulin Ratio 1.22 L (1.60-3.17) Ratio Thrombosis Risk Factor Assmnt - Choose All That Apply Any of the Below Risk Factors Present?: Yes Each Factor Represents 1 point: Abnormal pulmonary function (COPD), Age 41-60 years, Obesity (BMI >25) Other congenital or acquired thrombophilia - If yes, enter type in comment: No Thrombosis Risk Factor Assessment Total Risk Factor Score: 3 Thrombosis Risk Factor Assessment Level: Moderate Risk
[2024-10-31 17:28] LABS: Glucose,Whole Blood 123 mg/dL (70-110)
[2024-10-31 19:39] LABS: Glucose,Whole Blood 140 mg/dL (70-110)
[2024-10-31] MEDS: INSULIN GLARGINE (LANTUS) 100 UNIT/ML SYR SQ SCH (20:31)
[2024-10-31] MEDS: ATORVASTATIN 40 MG TAB PO SCH (20:32)
[2024-10-31] MEDS: MECLIZINE 25 MG TAB PO SCH (20:32)
[2024-11-01 05:47] LABS: Glucose,Whole Blood 130 mg/dL (70-110)
[2024-11-01 09:05] VITALS: BP 131/87; PULSE 88; RESP 20; TEMP 98.4
[2024-11-01 12:01] LABS: Glucose,Whole Blood 249 mg/dL (70-110)
== END 2024-11-01 13:10 | disposition home or self-care (01) ==
LOC: EC 19:44 → 6NMEDSUR 20:57
PROVIDERS: ADMIT Internal Medicine; ATTEND Internal Medicine
DX: R07.89 Other chest pain (principal); R42 Dizziness and giddiness; M50.30 Other cervical disc degeneration, unspecified cervical region; G89.29 Other chronic pain; E66.9 Obesity, unspecified; E78.5 Hyperlipidemia, unspecified; F17.200 Nicotine dependence, unspecified, uncomplicated; I10 Essential (primary) hypertension; I25.10 Atherosclerotic heart disease of native coronary artery without angina pectoris; J44.9 Chronic obstructive pulmonary disease, unspecified; Z68.39 Body mass index [BMI] 39.0-39.9, adult; Z79.02 Long term (current) use of antithrombotics/antiplatelets; Z79.82 Long term (current) use of aspirin; Z79.84 Long term (current) use of oral hypoglycemic drugs; Z79.899 Other long term (current) drug therapy; Z91.148 Patient's other noncompliance with medication regimen for other reason; Z95.5 Presence of coronary angioplasty implant and graft; Z88.6 Allergy status to analgesic agent; Z79.4 Long term (current) use of insulin
CPT/HCPCS: 99285; 36415; 94760; 93005; 80053 ×2; 83735; 84484 ×2; 85025 ×2; 85610; 85730; 70450; G0378 ×3